=== PATIENT | male | born 1940 | race American Indian/Alaskan Native ===

== ENCOUNTER 2016-09-15 10:34 | Outpatient (CLI) | payer MEDICARE ==
[2016-09-15 13:48] LABS: Basophils % (Auto) 0.6 % (0.0-1.8); Hematocrit 37.2 % (35.5-45.6); Mean Corpuscular HGB Conc 32 % (32-34); Mean Corpuscular Hemoglobin 29 pg (28-32); Mean Corpuscular Volume 89 fl (84-94); Platelet Count 181 K/mm3 (140-440); Red Blood Count 4.16 M/mm3 (3.65-5.03); Red Cell Distribution Width 15.4 % (13.2-15.2); White Blood Count 4.8 K/mm3 (4.5-11.0)
[2016-09-15 14:01] LABS: BUN/Creatinine Ratio 17.2; Bilirubin,Total 0.4 mg/dL (0.1-1.2); Calcium 9.2 mg/dL (8.4-10.2); Chloride 104.6 mmol/L (98-107); Total Protein 7.9 g/dL (6.3-8.2); Uric Acid 5.5 mg/dL (3.5-7.6)
[2016-09-19 01:32] LABS: Vitamin D, 25-OH, Total 23 ng/mL (30-100)
== END 2016-09-15 10:35 | disposition home or self-care (01) ==
LOC: LABHHL 10:34
PROVIDERS: ATTEND Internal Medicine
DX: I10 Essential (primary) hypertension (principal); R60.9 Edema, unspecified; E78.2 Mixed hyperlipidemia; E66.9 Obesity, unspecified; N40.0 Benign prostatic hyperplasia without lower urinary tract symptoms; C61 Malignant neoplasm of prostate
CPT/HCPCS: 36415; 80053; 80061; 82306; 82607; 83036; 84443; 84550; 85025

== ENCOUNTER 2017-07-17 08:13 | Outpatient (CLI) | payer MEDICARE ==
--- NOTE | 2017-07-17 13:26 | Ultrasound Report ---
ULTRASOUND RENAL BILATERAL HISTORY: Chronic kidney disease, stage IV. TECHNIQUE: transabdominal ultrasound with color Doppler interrogation. FINDINGS: The right kidney measures 12.3 x 5.6 x 5.9cm. Right renal cortex: 1.2cm. The left kidney measures 12.2 x 3.7 x 3.9cm. Left renal cortex: 1.5cm. The kidneys are normal size, contour and position. There is increased cortical echotexture bilaterally consistent with nonspecific renal parenchymal disease. There are 3 cysts in the right kidney measuring 0.8 cm at the superior pole, 1.5 cm at the inferior pole, and 2.3 cm at the inferior pole. No left renal lesion. No mass, shadowing calculus or hydronephrosis. Images through the bladder demonstrate a 2.8 x 2.3 x 2.8 cm mass near the base of the bladder which presumably represents an enlarged prostate gland. IMPRESSION: Echogenic kidneys consistent with nonspecific renal parenchymal disease. Right renal cyst, simple. Prominent prostate gland versus bladder mass.
== END 2017-07-17 08:14 | disposition home or self-care (01) ==
LOC: US 08:13
PROVIDERS: ATTEND Internal Medicine
DX: N18.4 Chronic kidney disease, stage 4 (severe) (principal); N28.1 Cyst of kidney, acquired
CPT/HCPCS: 76770

== ENCOUNTER 2018-07-04 08:36 | Outpatient (CLI) | payer MEDICARE ==
[2018-07-04 10:13] LABS: Chol/HDL Ratio 3.06 %
[2018-07-09 12:47] LABS: Vitamin D, 25-OH, D2 12 ng/mL
== END 2018-07-04 08:37 | disposition home or self-care (01) ==
LOC: LAB 08:36
PROVIDERS: ATTEND Internal Medicine
DX: E78.2 Mixed hyperlipidemia (principal); E55.9 Vitamin D deficiency, unspecified; E66.9 Obesity, unspecified; I65.29 Occlusion and stenosis of unspecified carotid artery; R79.89 Other specified abnormal findings of blood chemistry
CPT/HCPCS: 36415; 80061; 82306; 83036

== ENCOUNTER 2018-08-14 10:01 | Outpatient (CLI) | payer MEDICARE ==
--- NOTE | 2018-08-15 05:35 | Vascular Lab Report ---
PROCEDURE: VL VENOUS DUPLEX LE BILAT TECHNIQUE: Routine Doppler compression imaging was obtained of the deep venous systems of both lower extremities. Augmentation maneuvers and waveforms were recorded. HISTORY: ACUTE EMBOLISM AND THROMBOSIS OF UNSPECIFIED DEEP VEINS COMPARISONS: None FINDINGS: All of the deep veins compress normally bilaterally. The waveforms appear normal. IMPRESSION: No evidence of deep venous thrombosis in either lower extremity.. This document is electronically signed by Jose Pimentel MD., August 15 2018 05:33:54 AM ET
== END 2018-08-14 10:02 | disposition home or self-care (01) ==
LOC: VAS 10:01
PROVIDERS: ATTEND Internal Medicine Nephrology
DX: I82.403 Acute embolism and thrombosis of unspecified deep veins of lower extremity, bilateral (principal); N18.4 Chronic kidney disease, stage 4 (severe)
CPT/HCPCS: 93970

== ENCOUNTER 2018-08-16 08:49 | Day surgery (SDC) | payer MEDICARE ==
[2018-08-16 09:52] LABS: Calcium 9.2 mg/dL (8.4-10.2)
[2018-08-16 10:00] LABS: INR 1.03 (0.87-1.13)
[2018-08-16] MEDS ORDERED: VERSED IV ONE (10:00)
[2018-08-16] MEDS ORDERED: SUBLIMAZE IV ONE (10:00)
[2018-08-16 10:01] LABS: Partial Thromboplastin Time 27.9 Sec. (24.2-36.6)
[2018-08-16 10:02] LABS: Basophils % (Auto) 0.8 % (0.0-1.8); Eosinophils # (Auto) 0.2 K/mm3 (0.0-0.4); Eosinophils % (Auto) 3.1 % (0.0-4.3); Hematocrit 34.7 % (35.5-45.6); Hemoglobin 11.7 gm/dl (11.8-15.2); Lymphocytes # (Auto) 1.7 K/mm3 (1.2-5.4); Lymphocytes % (Auto) 34.1 % (13.4-35.0); Mean Corpuscular HGB Conc 34 % (32-34); Mean Corpuscular Volume 89 fl (84-94); Monocytes # (Auto) 0.7 K/mm3 (0.0-0.8); Monocytes % (Auto) 14.3 % (0.0-7.3); Platelet Count 211 K/mm3 (140-440); Red Blood Count 3.89 M/mm3 (3.65-5.03)
--- NOTE | 2018-08-16 11:32 | Cat Scan Report ---
CT BIOPSY RENAL RIGHT HISTORY: Chronic kidney disease DESCRIPTION OF PROCEDURE: Informed consent was obtained. Sterile technique was utilized. 1% lidocaine for skin anesthesia. Moderate sedation was accomplished with Versed and fentanyl. The patient was sedated for 10 minutes. Independent cardiorespiratory monitoring by RN. Intraobserver time of [address] guidance, a 17-gauge introducer needle was advanced to the inferior pole of the right kidney. 2 separate 1.3 cm 18-gauge core biopsies were obtained for pathologic analysis. The patient tolerated the procedure without difficulty. Followup scan demonstrates trace perinephric hemorrhage at the biopsy site. IMPRESSION: Successful CT-guided biopsy of the inferior pole of the right kidney.
[2018-08-16 14:32] VITALS: BP 148/73
== END 2018-08-16 08:50 | disposition home or self-care (01) ==
LOC: CATHLABREC 08:49
PROVIDERS: ATTEND Internal Medicine Nephrology
DX: I12.9 Hypertensive chronic kidney disease with stage 1 through stage 4 chronic kidney disease, or unspecified chronic kidney disease (principal); N18.4 Chronic kidney disease, stage 4 (severe); I82.403 Acute embolism and thrombosis of unspecified deep veins of lower extremity, bilateral; Z88.0 Allergy status to penicillin; Z79.899 Other long term (current) drug therapy; Z98.890 Other specified postprocedural states
CPT/HCPCS: 36415; 50200; 77012; 80048; 85025; 85610; 85730; J2250; J3010

== ENCOUNTER 2018-11-19 08:57 | Outpatient (CLI) | payer MEDICARE ==
[2018-11-19 11:23] LABS: Albumin 3.9 g/dL (3.9-5); Calcium 9.5 mg/dL (8.4-10.2)
[2018-11-19 11:34] LABS: Chol/HDL Ratio 3.27 %
[2018-11-22 09:01] LABS: Vitamin D, 25-OH, D2 4 ng/mL
== END 2018-11-19 08:58 | disposition home or self-care (01) ==
LOC: LAB 08:57
PROVIDERS: ATTEND Internal Medicine
DX: E11.9 Type 2 diabetes mellitus without complications (principal); E55.9 Vitamin D deficiency, unspecified; E87.5 Hyperkalemia; E78.2 Mixed hyperlipidemia
CPT/HCPCS: 36415; 80053; 80061; 82306; 83036

== ENCOUNTER 2021-08-17 08:08 | Day surgery (SDC) | payer MEDICARE ==
[2021-08-17] MEDS ORDERED: SODIUM CHLORIDE 0.9% 1000 ML 1,000 ML IV SCH (09:00)
[2021-08-17 09:58] LABS: Hematocrit 30.1 % (35.5-45.6); Hemoglobin 9.9 gm/dl (11.8-15.2); Mean Corpuscular HGB Conc 33 % (32-34); Mean Corpuscular Volume 90 fl (84-94); Platelet Count 176 K/mm3 (140-440); Red Blood Count 3.34 M/mm3 (3.65-5.03); Red Cell Distribution Width 14.7 % (13.2-15.2)
[2021-08-17] MEDS ORDERED: HYDROmorphone 0.5 MG/0.5 ML INJ IV PRN ×2 (10:09→10:30)
[2021-08-17] MEDS ORDERED: ONDANSETRON 4 MG/2 ML INJ IV PRN (10:09)
--- NOTE | 2021-08-17 10:10 | Anesthesia Day of Surgery ---
Anesthesia Day of Surgery - Day of Surgery Patient Examined: Yes Patient H&P Reviewed: Yes Patient is NPO: Yes
--- NOTE | 2021-08-17 10:12 | Anesthesia Consultation ---
Anesthesia Consult and Med Hx Date of service: 08/17/21 - Airway Anesthetic Teeth Evaluation: Good (Missing) ROM Head & Neck: Adequate Mental/Hyoid Distance: Adequate Mallampati Class: Class III Intubation Access Assessment: Probably Good - Pre-Operative Health Status ASA Pre-Surgery Classification: ASA3 Proposed Anesthetic Plan: General - Pulmonary Hx Smoking: No Hx Sleep Apnea: No - Cardiovascular System Hx Hypertension: Yes - Central Nervous System Hx Psychiatric Problems: No - Endocrine Hx Renal Disease: Yes Hx End Stage Renal Disease: Yes (Not on HD yet) Hx Non-Insulin Dependent Diabetes: No - Hematic Hx Anemia: Yes (9.930.1) Hx Sickle Cell Disease: No - Other Systems Hx Alcohol Use: No Hx Substance Use: No Hx Cancer: Yes (Prostate) Hx Obesity: Yes
--- NOTE | 2021-08-17 10:42 | Short Stay Summary ---
Short Stay Documentation Date of service: 08/17/21 Narrative H&P: The patient is an 81-year-old male with a history of chronic renal insufficiency who has not yet been started on hemodialysis however it is anticipated that he would likely require hemodialysis in the near future. He is right-hand dominant and was referred by his director sports Dr. Garcia in the hopes of having long-term dialysis access placed to avoid the placement of a permacath in the future. He had a bedside ultrasound performed that demonstrated he is an adequate candidate for creation of a left arm arteriovenous fistula. He was given the risk, benefits, and alternative procedures and expressed understanding and agrees to proceed. - History Past Medical History: heart failure, hypertension, renal failure, other (BPH) Past Surgical History: TURP Social history: no significant social history - Allergies and Medications Current Medications: Allergies Penicillins Adverse Reaction (Verified 08/12/21 16:56) Hives Home Medications Medication Instructions Recorded Confirmed Last Taken Type Nebivolol HCl [Bystolic] 5 tab PO DAILY 08/16/18 08/12/21 08/16/21 09:00 History Rosuvastatin (Nf) [Crestor] 20 mg PO DAILY 08/16/18 08/12/21 08/16/21 History Tamsulosin [Flomax] 0.4 mg PO QDAY 08/16/18 08/12/21 08/16/21 History amLODIPine 10 mg PO DAILY 08/16/18 08/17/21 08/17/21 06:45 History Aspirin [[place] Aspirin EC] 81 mg PO DAILY 08/12/21 08/17/21 08/15/21 History Furosemide [Lasix TAB] 80 mg PO DAILY 08/12/21 08/12/21 08/16/21 History calcitrioL [Rocaltrol] 0.5 mcg PO QDAY 08/12/21 08/12/21 08/16/21 History Active Medications Hydromorphone HCl (Hydromorphone 0.5 Mg/0.5 Ml Inj) 0.25 mg IV Q10MIN PRN PRN Reason: Pain, Moderate (4-6) Stop: 08/17/21 20:00 Hydromorphone HCl (Hydromorphone 0.5 Mg/0.5 Ml Inj) 0.5 mg IV Q10MIN PRN PRN Reason: Pain , Severe (7-10) Stop: 08/17/21 20:00 Clindamycin HCl (Cleocin 900 Mg/50 Ml) 900 mg in 50 mls @ 100 mls/hr IV PREOP HENRIQUE; Protocol Sodium Chloride (Nacl 0.9% 1000 Ml) 1,000 mls @ 42 mls/hr IV DIRECT HENRIQUE Last Admin: 08/17/21 09:16 Dose: 42 mls/hr Ondansetron HCl (Ondansetron 4 Mg/2 Ml Inj) 4 mg IV ONCE PRN PRN Reason: Nausea And Vomiting Stop: 08/17/21 12:00 - Physical exam General appearance: no acute distress Lungs: Normal air movement Breasts: deferred Heart: Regular rate Gastrointestinal: normal Male Genitourinary: deferred Female Genitourinary: deferred Rectal Exam: deferred Extremities: pulses intact (Palpable radial pulses bilaterally) - Brief post op/procedure progress note Date of procedure: 08/17/21 Pre-op diagnosis: Stage V Chronic Renal Insufficiency Post-op diagnosis: same Procedure: Creation of Left Brachiocephalic Arteriovenous Fistula Anesthesia: GETA Surgeon: JERILYN HOANG Estimated blood loss: minimal Pathology: none Condition: stable - Disposition Condition at discharge: Good Disposition: 01 HOME / SELF CARE / HOMELESS Short Stay Discharge Plan Activity: other (No heavy lifting with left arm for 2 weeks. Use stress ball with left hand as often as possible.) Wound: open to air, keep clean and dry, other (Okay to shower and wash the left arm incision with soap and water but do not soak in water for 2 weeks.) Follow up with: LINDA MORAN MD [Primary Care Provider] - 7 Days JERILYN HOANG MD [Staff Physician] - 14 Days Forms: Outpatient Surgery DC Inst. Prescriptions: HYDROcodone/APAP 7.5-325 [[place] 7.5/325] 1 each PO Q6HR PRN #30 tablet PRN Reason: Pain
[2021-08-17] MEDS ORDERED: fentaNYL 100 MCG/2 ML INJ ONE (10:51)
[2021-08-17] MEDS ORDERED: LIDOCAINE PF 100 MG/5 ML (CARDIAC SYRINGE) IV ONE (10:51)
[2021-08-17] MEDS ORDERED: propofoL 200 MG/20 ML VIAL IV ONE (10:51)
[2021-08-17] MEDS ORDERED: HEPARIN 10,000 UNITS/10 ML VIAL ONE (10:56)
[2021-08-17] MEDS ORDERED: BUPIVACAINE/PF (0.5%) 5 MG/1 ML 30 ML VIAL INFILTRATI ONE ×2 (10:57→12:29)
[2021-08-17] MEDS ORDERED: SODIUM CHLORIDE 0.9% 500 ML 500 ML ONE (10:57)
[2021-08-17] MEDS ORDERED: GLYCOPYRROLATE 0.4 MG/2 ML INJ ONE (11:43)
[2021-08-17] MEDS ORDERED: SODIUM CHLORIDE 0.9% IRR 1,500 ML BOTTLE IR ONE (12:02)
[2021-08-17] MEDS ORDERED: LIDOCAINE (1%) 10 MG/1 ML VIAL 20 ML MDV INFILTRATI ONE (12:02)
[2021-08-17] MEDS ORDERED: SODIUM CHLORIDE 0.9% P/F 10 ML VIAL IV ONE (12:02)
[2021-08-17] MEDS ORDERED: BUPIVACAINE/PF (0.5%) 5 MG/1 ML 10 ML VIAL INFILTRATI ONE (12:02)
[2021-08-17] MEDS ORDERED: SODIUM CHLORIDE 0.9% 500 ML IVPB IRRIGATION ONE (12:02)
[2021-08-17] MEDS ORDERED: SODIUM CHLORIDE 0.9% 250 ML IVPB IV ONE (12:02)
[2021-08-17] MEDS ORDERED: SODIUM CHLORIDE 0.9% 500 ML IVPB IV ONE (12:02)
[2021-08-17] MEDS ORDERED: HEPARIN 10,000 UNITS/10 ML VIAL IV ONE (12:05)
[2021-08-17] MEDS ORDERED: ONDANSETRON 4 MG/2 ML INJ ONE (12:44)
--- NOTE | 2021-08-17 13:09 | Operative Report ---
Operative Report Operative Report: Date of procedure: 08/17/2021 Pre-operative diagnosis: Chronic Renal Insufficiency Post-operative diagnosis: Same Procedure(s): Creation of Left brachial Artery to Cephalic Vein Arteriovenous Fistula Surgeon: Denzel Jacob MD X Ray Physician: None Anesthesia: LMA EBL: Minimal Counts: Correct Complications: None Condition: Stable Findings: Successful creation of left brachiocephalic arteriovenous fistula with palpable thrill and palpable radial pulse at the completion of the case. Specimen: None Indications: The patient is an 81-year-old male with a history of stage V chronic renal insufficiency who is in need of long-term dialysis access to avoid placement of a permacath if he progresses to requiring hemodialysis in the future. He is right-hand dominant and a bedside ultrasound demonstrated he has an adequate vein for creation of an arteriovenous fistula. He was given the risk, benefits, and alternative procedures and consented to the procedure. Description of Procedure: The patient was brought to the operating room and laid in supine position. A timeout was performed and then the patient was adequately sedated and LMA was placed. His left arm was then prepped and draped in normal sterile fashion. A transverse incision was then made and carried down to the cephalic vein using sharp dissection. The vein was dissected out both proximally and distally and suture ligated and divided distally. I flushed the vein with heparinized saline and flow was controlled with a bulldog clamp. I then dissected out the brachial artery through this incision circumferentially both proximal and distal and controlled the artery with vessel loops. I systemically heparinized the patient with 3000 units of heparin IV and used angled DeBakey clamps to control flow through the artery. I created an arteriotomy using an 11 blade and Baig scissors. I created an end to side anastomosis between the cephalic vein and brachial artery using a 6-0 Prolene in running fashion. Prior to completing the anastomosis I flashed the artery both proximally and distally and then flushed the anastomosis with heparinized saline to remove any debris. I then completed the anastomosis and removed all clamps allowing flow into the fistula which had an adequate thrill. I achieved hemostasis with a combination of Quick Clot and electrocautery. Once hemostasis had been achieved I closed the wound in 2 layers using a 3-0 Vicryl in a running fashion in the deep dermal layer and a 4- 0 Monocryl in running fashion in the subcuticular layer. I then dressed the wound with Dermabond. The patient tolerated the procedure well. All sponge, needle, and instrument counts were correct. The patient was taken to the recovery area in stable condition.
[2021-08-17 14:20] VITALS: BP 139/68
--- NOTE | 2021-08-17 15:38 | Post Anesthesia Evaluation ---
- Post Anesthesia Evaluation Patient Participated: Yes Airway Patent: Yes Stable Respiratory Function: Yes Nausea/Vomiting: No Temp > 96.8F: Yes Pain Manageable: Yes Adequeate Hydration: Yes Anesthesia Complications: No Block Receding Appropriately: Not Applicable Patient on Ventilator: No
== END 2021-08-17 14:10 | disposition home or self-care (01) ==
LOC: OR 08:08
PROVIDERS: ATTEND Surgery Vascular Surgery
DX: I12.0 Hypertensive chronic kidney disease with stage 5 chronic kidney disease or end stage renal disease (principal); N18.6 End stage renal disease; E66.9 Obesity, unspecified; D64.9 Anemia, unspecified; Z88.0 Allergy status to penicillin; Z79.82 Long term (current) use of aspirin; Z79.899 Other long term (current) drug therapy; E78.00 Pure hypercholesterolemia, unspecified; Z85.46 Personal history of malignant neoplasm of prostate; Z98.890 Other specified postprocedural states; Z68.32 Body mass index [BMI] 32.0-32.9, adult
CPT/HCPCS: 36415; 36821; 80048; 85027; J1644; J1815; J2001; J2405; J2704; J3010; J3490; J7030; J7040; J7502; J7050

== ENCOUNTER 2021-10-11 14:15 | Inpatient (IN) | payer MEDICARE ==
[2021-10-11] MEDS ORDERED: MORPHINE 2 MG/1 ML INJ IV PRN (14:41)
[2021-10-11] MEDS ORDERED: ACETAMINOPHEN 325 MG TAB PO PRN ×2 (14:41→19:00)
--- NOTE | 2021-10-11 17:11 | Vascular Lab Report ---
Left upper extremity AV fistula vascular ultrasound HISTORY: evaluate fistula functioning. TECHNIQUE: Grayscale and Doppler imaging performed. COMPARISON: None FINDINGS: There is a left upper extremity AV fistula. Proximal to the anastomosis, peak systolic [place] in the brachial artery is 217 cm/s. The anastomosis is widely patent. Within the fistula, peak s ystolic velocity is 372 cm/s. At the inflow side, peak systolic velocity is 460 cm/s. At the level of the biceps distally peak systolic velocity is 211 cm/s, 264 cm/s at the mid biceps, and 307 cm/s at the proximal biceps level. At the level of the axilla, peak systolic velocity is 268 cm/s. The outflo w tract to systolic velocity is 324 cm/s. Peak systolic velocity in the subclavian vein is 83 cm/s. V olume flow rate is between 517 and 587 mL/m. IMPRESSION: Patent left upper extremity AV fistula with peak systolic velocities as above. Signer Name: López Schultz MD Signed: 10/11/2021 5:06 PM Workstation Name: [facility]
[2021-10-11] MEDS ORDERED: ONDANSETRON 4 MG/2 ML INJ IV PRN (19:00)
[2021-10-11 21:22] LABS: Basophils # (Auto) 0.1 K/mm3 (0.0-0.1); Eosinophils # (Auto) 0.1 K/mm3 (0.0-0.4); Eosinophils % (Auto) 1.8 % (0.0-4.3); Hematocrit 25.7 % (35.5-45.6); Hemoglobin 8.6 gm/dl (11.8-15.2); Lymphocytes # (Auto) 1.2 K/mm3 (1.2-5.4); Lymphocytes % (Auto) 22.1 % (13.4-35.0); Mean Corpuscular HGB Conc 33 % (32-34); Mean Corpuscular Volume 90 fl (84-94); Monocytes # (Auto) 0.8 K/mm3 (0.0-0.8); Platelet Count 157 K/mm3 (140-440); Red Blood Count 2.87 M/mm3 (3.65-5.03); Red Cell Distribution Width 15.3 % (13.2-15.2)
[2021-10-11 21:36] LABS: Albumin 3.5 g/dL (3.9-5); Calcium 8.6 mg/dL (8.4-10.2)
[2021-10-12] MEDS: FAMOTIDINE 10 MG TAB PO SCH ×3 (00:01→21:56)
[2021-10-12 05:03] LABS: Hematocrit 24.7 % (35.5-45.6); Hemoglobin 8.3 gm/dl (11.8-15.2); Mean Corpuscular HGB Conc 34 % (32-34); Mean Corpuscular Volume 89 fl (84-94); Platelet Count 152 K/mm3 (140-440); Red Blood Count 2.77 M/mm3 (3.65-5.03); Red Cell Distribution Width 14.9 % (13.2-15.2)
[2021-10-12 05:24] LABS: Calcium 8.5 mg/dL (8.4-10.2)
[2021-10-12 06:37] LABS: Total Cells Counted 100
[2021-10-12 06:38] LABS: Anisocytosis Few; Band Neutrophils # (Manual) 0.1 K/mm3; Basophils % (Manual) 0 % (0.0-1.8); Eosinophils % (Manual) 0 % (0.0-4.3); Ovalocytes Few; Platelet Estimate Consistent w Auto
--- NOTE | 2021-10-12 08:24 | History and Physical Report ---
History of Present Illness Date of examination: 10/11/21 Date of admission: 10/11/21 15:39 Chief complaint: Direct admission for hemodialysis History of present illness: 81-year-old -[place] male history of chronic chronic kidney disease which has been progressing over the last 5 years--was sent by his energy manager Dr. Garcia for first-time dialysis. Creatinine is about 6 hyperkalemia. Patient is getting increasingly fatigued. Patient has a AV fistula in the left upper extremity about mid August. Vascular surgery to decide whether the AV fistula can be used or new Vas-Cath to be placed. Slight shortness of breath present. Generalized weakness present. No nausea or vomiting. No altered sensorium. No fever or chills. Past History Past Medical History: ESRD, hypertension, hyperlipidemia, other (bph, prostate cancer) Past Surgical History: Other (AV fistula, prostate radioactive seeding in 2013) Medications and Allergies Allergies Allergy/AdvReac Type Severity Reaction Status Date / Time Penicillins Allergy Hives Verified 10/11/21 15:30 Home Medications Medication Instructions Recorded Confirmed Last Taken Type Nebivolol HCl [Bystolic] 5 tab PO DAILY 08/16/18 10/11/21 10/11/21 History Rosuvastatin (Nf) [Crestor] 20 mg PO DAILY 08/16/18 10/11/21 10/11/21 History Tamsulosin [Flomax] 0.4 mg PO QDAY 08/16/18 10/11/21 10/11/21 History amLODIPine 10 mg PO DAILY 08/16/18 10/11/21 10/11/21 History Aspirin [[place] Aspirin EC] 81 mg PO DAILY 08/12/21 10/11/21 10/11/21 History Furosemide [Lasix TAB] 80 mg PO DAILY 08/12/21 10/11/21 10/11/21 History calcitrioL [Rocaltrol] 0.5 mcg PO QDAY 08/12/21 10/11/21 10/11/21 History Vitamin D3 5,000 UNIT 5,000 units PO DAILY 10/11/21 10/11/21 10/11/21 History Active Meds: Active Medications Acetaminophen (Acetaminophen 325 Mg Tab) 650 mg PO Q4H PRN PRN Reason: Pain MILD(1-3)/Fever >100.5/GODOY Famotidine (Famotidine 10 Mg Tab) 10 mg PO BID [facility] Last Admin: 10/12/21 00:01 Dose: 10 mg Morphine Sulfate (Morphine 2 Mg/1 Ml Inj) 2 mg IV Q4H PRN PRN Reason: Pain, Moderate (4-6) Ondansetron HCl (Ondansetron 4 Mg/2 Ml Inj) 4 mg IV Q8H PRN PRN Reason: Nausea And Vomiting Sodium Chloride (Sodium Chloride 0.9% 10 Ml Flush Syringe) 10 ml IV BID [facility] Sodium Chloride (Sodium Chloride 0.9% 10 Ml Flush Syringe) 10 ml IV PRN PRN PRN Reason: LINE FLUSH Review of Systems All systems: negative Constitutional: anorexia, fatigue, weakness, malaise, no weight loss, no weight gain, no fever, no chills, no sweats, no night sweats, no lethargy, no chronic headaches, no poor appetite, no daytime sleepiness, no chronic pain, no other Ears, nose, mouth and throat: no ear pain, no ear discharge, no tinnitis, no decreased hearing, no nose pain Cardiovascular: no chest pain, no orthopnea, no palpitations, no rapid/irregular heart beat Respiratory: no dyspnea on exertion Gastrointestinal: no abdominal pain, no nausea, no vomiting, no diarrhea Genitourinary Male: urinary hesitancy, no dysuria, no hematuria, no flank pain, no discharge, no urinary frequency Rectal: no pain Musculoskeletal: no neck stiffness, no neck pain, no shooting arm pain, no arm numbness/tingling, no low back pain Integumentary: deferred Neurological: no head injury, no transient paralysis, no paralysis, no weakness, no parathesias, no numbness, no tingling Psychiatric: change in appetite, no anxiety, no memory loss, no change in sleep habits, no sleep disturbances, no insomnia, no hypersomnia, no change in libido, no suicidal ideation, no disorientation, no hallucinations Endocrine: no cold intolerance, no heat intolerance, no polyphagia, no excessive thirst, no polydipsia, no polyuria, no nocturia, no excessive sweating Hematologic/Lymphatic: no easy bruising, no easy bleeding Allergic/Immunologic: no urticaria, no allergic rhinitis, no wheezing Exam - Constitutional Vitals: Temp Pulse Resp BP Pulse Ox 98.0 F 50 L 17 160/68 98 10/12/21 02:28 10/12/21 02:28 10/12/21 02:28 10/12/21 02:28 10/12/21 02:28 General appearance: Present: no acute distress, well-nourished - EENT Eyes: Present: PERRL ENT: hearing intact, clear oral mucosa - Neck Neck: Present: supple, normal ROM - Respiratory Respiratory effort: normal Respiratory: bilateral: CTA - Cardiovascular Heart rate: 78 Rhythm: regular Heart Sounds: Present: S1 & S2. Absent: rub, click - Extremities Extremities: no ischemia, pulses intact, pulses symmetrical, No edema Peripheral Pulses: within normal limits - Abdominal General gastrointestinal: Present: soft, non-tender, non-distended, normal bowel sounds Male genitourinary: Present: normal - Rectal Rectal Exam: deferred - Integumentary Integumentary: Present: clear, warm, dry - Musculoskeletal Musculoskeletal: gait normal, strength equal bilaterally - Psychiatric Psychiatric: appropriate mood/affect, intact judgment & insight - Neurologic Neurologic: CNII-XII intact, moves all extremities - Allied Health Allied health notes reviewed: nursing, case management Results - Labs CBC & Chem 7: 10/12/21 04:33 10/12/21 04:33 Labs: Laboratory Last Values WBC 5.2 K/mm3 (4.5-11.0) 10/12/21 04:33 RBC 2.77 M/mm3 (3.65-5.03) L 10/12/21 04:33 Hgb 8.3 gm/dl (11.8-15.2) L 10/12/21 04:33 Hct 24.7 % (35.5-45.6) L 10/12/21 04:33 MCV 89 fl (84-94) 10/12/21 04:33 MCH 30 pg (28-32) 10/12/21 04:33 MCHC 34 % (32-34) 10/12/21 04:33 RDW 14.9 % (13.2-15.2) 10/12/21 04:33 Plt Count 152 K/mm3 (140-440) 10/12/21 04:33 Lymph % (Auto) 22.1 % (13.4-35.0) 10/11/21 21:08 [place] % (Auto) [employer] 10/12/21 04:33 Eos % (Auto) 1.8 % (0.0-4.3) 10/11/21 21:08 Baso % (Auto) 1.0 % (0.0-1.8) 10/11/21 21:08 Lymph # (Auto) 1.2 K/mm3 (1.2-5.4) 10/11/21 21:08 [place] # (Auto) 0.8 K/mm3 (0.0-0.8) 10/11/21 21:08 Eos # (Auto) 0.1 K/mm3 (0.0-0.4) 10/11/21 21:08 Baso # (Auto) 0.1 K/mm3 (0.0-0.1) 10/11/21 21:08 Add Manual Diff Complete 10/12/21 04:33 Total Counted 100 10/12/21 04:33 Seg Neutrophils % 61.1 % (40.0-70.0) 10/11/21 21:08 Seg Neuts % (Manual) 71.0 % (40.0-70.0) H 10/12/21 04:33 Band Neutrophils % 2.0 % 10/12/21 04:33 Lymphocytes % (Manual) 24.0 % (13.4-35.0) 10/12/21 04:33 Reactive Lymphs % (Man) 0 % 10/12/21 04:33 Monocytes % (Manual) 3.0 % (0.0-7.3) 10/12/21 04:33 Eosinophils % (Manual) 0 % (0.0-4.3) 10/12/21 04:33 Basophils % (Manual) 0 % (0.0-1.8) 10/12/21 04:33 Metamyelocytes % 0 % 10/12/21 04:33 Myelocytes % 0 % 10/12/21 04:33 Promyelocytes % 0 % 10/12/21 04:33 Blast Cells % 0 % 10/12/21 04:33 Nucleated RBC % Not Reportable 10/12/21 04:33 Seg Neutrophils # 3.4 K/mm3 (1.8-7.7) 10/11/21 21:08 Seg Neutrophils # Man 3.7 K/mm3 (1.8-7.7) 10/12/21 04:33 Band Neutrophils # 0.1 K/mm3 10/12/21 04:33 Lymphocytes # (Manual) 1.2 K/mm3 (1.2-5.4) 10/12/21 04:33 Abs React Lymphs (Man) 0.0 K/mm3 10/12/21 04:33 Monocytes # (Manual) 0.2 K/mm3 (0.0-0.8) 10/12/21 04:33 Eosinophils # (Manual) 0.0 K/mm3 (0.0-0.4) 10/12/21 04:33 Basophils # (Manual) 0.0 K/mm3 (0.0-0.1) 10/12/21 04:33 Metamyelocytes # 0.0 K/mm3 10/12/21 04:33 Myelocytes # 0.0 K/mm3 10/12/21 04:33 Promyelocytes # 0.0 K/mm3 10/12/21 04:33 Blast Cells # 0.0 K/mm3 10/12/21 04:33 WBC Morphology Not Reportable 10/12/21 04:33 Hypersegmented Neuts Not Reportable 10/12/21 04:33 Hyposegmented Neuts Not Reportable 10/12/21 04:33 Hypogranular Neuts Not Reportable 10/12/21 04:33 Smudge Cells Not Reportable 10/12/21 04:33 Toxic Granulation Not Reportable 10/12/21 04:33 Toxic Vacuolation Not Reportable 10/12/21 04:33 Dohle Bodies Not Reportable 10/12/21 04:33 Pelger-Huet Anomaly Not Reportable 10/12/21 04:33 Ivy Rods Not Reportable 10/12/21 04:33 Platelet Estimate Consistent w auto 10/12/21 04:33 Clumped Platelets Not Reportable 10/12/21 04:33 Plt Clumps, EDTA Not Reportable 10/12/21 04:33 Large Platelets Not Reportable 10/12/21 04:33 Giant Platelets Not Reportable 10/12/21 04:33 Platelet Satelliting Not Reportable 10/12/21 04:33 Plt Morphology Comment Not Reportable 10/12/21 04:33 RBC Morphology Not Reportable 10/12/21 04:33 Dimorphic RBCs Not Reportable 10/12/21 04:33 Polychromasia Not Reportable 10/12/21 04:33 Hypochromasia Not Reportable 10/12/21 04:33 Poikilocytosis Not Reportable 10/12/21 04:33 Anisocytosis Few 10/12/21 04:33 Microcytosis Not Reportable 10/12/21 04:33 Macrocytosis Not Reportable 10/12/21 04:33 Spherocytes Not Reportable 10/12/21 04:33 Pappenheimer Bodies Not Reportable 10/12/21 04:33 Sickle Cells Not Reportable 10/12/21 04:33 Target Cells Not Reportable 10/12/21 04:33 Tear Drop Cells Not Reportable 10/12/21 04:33 Ovalocytes Few 10/12/21 04:33 Helmet Cells Not Reportable 10/12/21 04:33 [place] Bodies Not Reportable 10/12/21 04:33 Strawn Rings Not Reportable 10/12/21 04:33 [place] Cells Not Reportable 10/12/21 04:33 Bite Cells Not Reportable 10/12/21 04:33 Crenated Cell Not Reportable 10/12/21 04:33 Elliptocytes Not Reportable 10/12/21 04:33 Acanthocytes (Spur) Not Reportable 10/12/21 04:33 Rouleaux Not Reportable 10/12/21 04:33 Hemoglobin C Crystals Not Reportable 10/12/21 04:33 Schistocytes Not Reportable 10/12/21 04:33 Malaria parasites Not Reportable 10/12/21 04:33 Bertram Bodies Not Reportable 10/12/21 04:33 Hem Pathologist Commnt No 10/12/21 04:33 Sodium 141 mmol/L (137-145) 10/12/21 04:33 Potassium 5.0 mmol/L (3.6-5.0) 10/12/21 04:33 Chloride 112.2 mmol/L (98-107) H 10/12/21 04:33 Carbon Dioxide 17 mmol/L (22-30) L 10/12/21 04:33 Anion Gap 17 mmol/L 10/12/21 04:33 BUN 84 mg/dL (9-20) H 10/12/21 04:33 Creatinine 5.7 mg/dL (0.8-1.3) H 10/12/21 04:33 Estimated GFR 12 ml/min 10/12/21 04:33 BUN/Creatinine Ratio 15 % 10/12/21 04:33 Glucose 84 mg/dL (75-100) 10/12/21 04:33 Calcium 8.5 mg/dL (8.4-10.2) 10/12/21 04:33 Total Bilirubin 0.20 mg/dL (0.1-1.2) 10/11/21 21:08 AST 17 units/L (5-40) 10/11/21 21:08 ALT 11 units/L (7-56) 10/11/21 21:08 Alkaline Phosphatase 69 units/L (35-129) 10/11/21 21:08 Total Protein 5.7 g/dL (6.3-8.2) L 10/11/21 21:08 Albumin 3.5 g/dL (3.9-5) L 10/11/21 21:08 Albumin/Globulin Ratio 1.6 % 10/11/21 21:08 Short CBC 10/11/21 10/12/21 Range/Units 21:08 04:33 WBC 5.6 5.2 (4.5-11.0) K/mm3 Hgb 8.6 L 8.3 L (11.8-15.2) gm/dl Hct 25.7 L 24.7 L (35.5-45.6) % Plt Count 157 152 (140-440) K/mm3 BMP 10/11/21 10/12/21 21:08 04:33 Sodium 141 141 Potassium 4.7 5.0 Chloride 110.0 H 112.2 H Carbon Dioxide 17 L 17 L BUN 84 H 84 H Creatinine 5.9 H 5.7 H Glucose 132 H 84 Calcium 8.6 8.5 Liver Function 10/11/21 Range/Units 21:08 Total Bilirubin 0.20 (0.1-1.2) mg/dL AST 17 (5-40) units/L ALT 11 (7-56) units/L Alkaline Phosphatase 69 (35-129) units/L Albumin 3.5 L (3.9-5) g/dL [place]/IV: Voiding Method Toilet Assessment and Plan Advance Directives: Yes (Full code) VTE prophylaxis?: Chemical Plan of care discussed with patient/family: Yes - Patient Problems (1) ESRD needing dialysis Current Visit: Yes Status: Acute Plan to address problem: Patient has reached a threshold level where he needs hemodialysis Patient had AV fistula in [place] Vascular surgery to decide about the maturity of AV fistula for hemodialysis. If AV fistula cannot be used then he needs a new Vas-Cath (2) Hypertension Current Visit: Yes Status: Chronic Qualifiers: Hypertension type: primary hypertension Qualified Code(s): I10 - Essential (primary) hypertension Plan to address problem: Continue antihypertensives and adjust medications as necessary (3) HLD (hyperlipidemia) Current Visit: Yes Status: Chronic Qualifiers: Hyperlipidemia type: mixed hyperlipidemia Qualified Code(s): E78.2 - Mixed hyperlipidemia Plan to address problem: Continue statins (4) BPH (benign prostatic hyperplasia) Current Visit: Yes Status: Chronic Qualifiers: Lower urinary tract symptom presence: symptoms present Lower urinary tract symptom detail: unspecified Qualified Code(s): N40.1 - Benign prostatic hyperp lasia with lower urinary tract symptoms Plan to address problem: Continue tamsulosin (5) Vitamin D deficiency Current Visit: Yes Status: Chronic Plan to address problem: Continue vitamin D at 5000 units (6) Anemia Current Visit: Yes Status: Chronic Qualifiers: Anemia type: due to chronic kidney disease Plan to address problem: Will defer to nephrology regarding Epogen (7) DVT prophylaxis Current Visit: Yes Status: Acute Plan to address problem: Patient on heparin and GI prophylaxis (8) Advance care planning Current Visit: Yes Status: Acute Plan to address problem: This is education collected, care plan discussed, diagnosis discussed, and prognosis discussed. Patient acknowledged understanding with care plan +30 minutes.
[2021-10-12] MEDS ORDERED: NON-FORMULARY EACH (Rosuvastatin (Nf) 5 MG Tablet) PO SCH (10:00)
[2021-10-12] MEDS ORDERED: NEBIVOLOL HCL PO SCH (10:00)
[2021-10-12] MEDS ORDERED: METOPROLOL SUCCINATE XL 50 MG TAB PO SCH (10:00)
[2021-10-12] MEDS ORDERED: VITAMIN D3 5000 UNIT PO SCH (10:00)
[2021-10-12] MEDS ORDERED: NON-FORMULARY EACH (Furosemide [Lasix Tab] 80 MG Tablet) PO SCH (10:00)
[2021-10-12] MEDS ORDERED: FUROSEMIDE 40 MG TAB PO SCH (10:00)
[2021-10-12] MEDS: ASPIRIN EC 81 MG TAB PO SCH (10:19)
[2021-10-12] MEDS: CHOLECALCIFEROL (VIT D3) 5,000 UNIT TAB PO SCH (10:20)
[2021-10-12] MEDS: TAMSULOSIN 0.4 MG CAP PO SCH (10:20)
[2021-10-12] MEDS: amLODIPine 10 MG TAB PO SCH (10:20)
[2021-10-12] MEDS ORDERED: HEPARIN 10,000 UNITS/10 ML VIAL ONE (11:53)
[2021-10-12] MEDS ORDERED: HEPARIN/NS 5000 UNIT/500ML 1,000 ML IR ONE (11:53)
[2021-10-12] MEDS: LIDOCAINE (2%) 20 MG/1 ML VIAL 50 ML MDV INFILTRATI ONE ×2 (11:58→13:01)
[2021-10-12] MEDS: CLINDAMYCIN 600 MG/50 mL 600 MG/50 ML BAG IV NR ×2 (11:59→12:58)
[2021-10-12] MEDS ORDERED: SODIUM CHLORIDE 0.9% 500 ML 500 ML ONE (12:36)
[2021-10-12] MEDS: fentaNYL 100 MCG/2 ML INJ ONE ×3 (12:49→13:05)
[2021-10-12] MEDS: MIDAZOLAM 2 MG/2 ML INJ ONE ×3 (12:49→13:05)
--- NOTE | 2021-10-12 13:51 | Consultation ---
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 [employer] is Dr. Garcia Past History Past Medical History: ESRD, hypertension, hyperlipidemia, other (bph, prostate cancer) Past Surgical History: Other (AV fistula, prostate radioactive seeding in 2013) Medications and Allergies Allergies Allergy/AdvReac Type Severity Reaction Status Date / Time Penicillins Allergy Hives Verified 10/11/21 15:30 Home Medications Medication Instructions Recorded Confirmed Last Taken Type Nebivolol HCl [Bystolic] 5 tab PO DAILY 08/16/18 10/11/21 10/11/21 History Rosuvastatin (Nf) [Crestor] 20 mg PO DAILY 08/16/18 10/11/21 10/11/21 History Tamsulosin [Flomax] 0.4 mg PO QDAY 08/16/18 10/11/21 10/11/21 History amLODIPine 10 mg PO DAILY 08/16/18 10/11/21 10/11/21 History Aspirin [[place] Aspirin EC] 81 mg PO DAILY 08/12/21 10/11/21 10/11/21 History Furosemide [Lasix TAB] 80 mg PO DAILY 08/12/21 10/11/21 10/11/21 History calcitrioL [Rocaltrol] 0.5 mcg PO QDAY 08/12/21 10/11/21 10/11/21 History Vitamin D3 5,000 UNIT 5,000 units PO DAILY 10/11/21 10/11/21 10/11/21 History Active Meds: Active Medications Acetaminophen (Acetaminophen 325 Mg Tab) 650 mg PO Q4H PRN PRN Reason: Pain MILD(1-3)/Fever >100.5/GODOY Amlodipine Besylate (Amlodipine 10 Mg Tab) 10 mg PO DAILY [facility] Aspirin (Aspirin Ec 81 Mg Tab) 81 mg PO DAILY [facility] Last Admin: 10/12/21 10:19 Dose: 81 mg Atorvastatin Calcium (Atorvastatin 40 Mg Tab) 40 mg PO QHS [facility] Calcitriol (Calcitriol 0.5 Mcg Cap) 0.5 mcg PO QDAY [facility] Cholecalciferol (Cholecalciferol (Vit D3) 5,000 Unit Tab) 5,000 unit PO QDAY [facility] Last Admin: 10/12/21 10:20 Dose: 5,000 unit Famotidine (Famotidine 10 Mg Tab) 10 mg PO BID [facility] Last Admin: 10/12/21 10:19 Dose: 10 mg Furosemide (Furosemide 40 Mg Tab) 80 mg PO DAILY [facility] Clindamycin HCl (Cleocin 600 Mg/50 Ml) 600 mg in 50 mls @ 100 mls/hr IV PREOP NR; Protocol Stop: 10/12/21 20:00 Last Admin: 10/12/21 12:58 Dose: 50 mls Metoprolol Succinate (Metoprolol Succinate Xl 50 Mg Tab) 50 mg PO QDAY [facility] Morphine Sulfate (Morphine 2 Mg/1 Ml Inj) 2 mg IV Q4H PRN PRN Reason: Pain, Moderate (4-6) Ondansetron HCl (Ondansetron 4 Mg/2 Ml Inj) 4 mg IV Q8H PRN PRN Reason: Nausea And Vomiting Sodium Chloride (Sodium Chloride 0.9% 10 Ml Flush Syringe) 10 ml IV BID [facility] Last Admin: 10/12/21 10:21 Dose: 10 ml Sodium Chloride (Sodium Chloride 0.9% 10 Ml Flush Syringe) 10 ml IV PRN PRN PRN Reason: LINE FLUSH Tamsulosin HCl (Tamsulosin 0.4 Mg Cap) 0.4 mg PO QDAY [facility] Last Admin: 10/12/21 10:20 Dose: 0.4 mg Review of Systems Constitutional: no fever, no chills Cardiovascular: edema, no chest pain, no palpitations Respiratory: no cough, no shortness of breath Gastrointestinal: no abdominal pain, no nausea, no vomiting Genitourinary Male: no hematuria Exam - Vital Signs Vital signs: Vital Signs Temp Pulse Resp BP Pulse Ox 97.6 F 56 L 16 162/68 98 10/11/21 22:00 10/11/21 22:00 10/11/21 22:00 10/11/21 22:00 10/11/21 22:00 - General Appearance General appearance: other (Awake & alert) EENT: PERRL, hearing intact Neck: Present: neck supple. Absent: JVD/HJR Respiratory: Other (Good air entry) Heart: regular, S1S2 Gastrointestinal: Present: normal Integumentary: warm and dry Neurologic: no focal deficit, alert and oriented x3 Musculoskeletal: Present: other (Lt arm AVF +Bruit) Psychiatric: mood/affect appropriate Results - Lab Results 10/12/21 04:33 10/12/21 04:33 Most recent lab results Calcium 8.5 mg/dL (8.4-10.2) 10/12/21 04:33 Assessment and Plan CKD5/ESRD - S/p Fistulogram with repair of Lt arm AVF. Plan for initial HD in am Lytes - Kayexalate, Low K, High Bicarb bath on HD, f/u labs HTN - Resume Home meds but hold Metoprolol & f/u Bradycardia LE edema - UF on HD Thanks very much, will f/u with you
--- NOTE | 2021-10-12 14:15 | Operative Report ---
Operative Report Operative Report: EXAM: 1. Ultrasound-guided access of the left arm AV fistula cephalic vein, retrograde. 2. Selection of the brachial artery in a retrograde fashion. 3. Angiography of the left upper extremity. 4. Angioplasty of the peripheral dialysis access anastomosis with a 6 mm x 40 mm angioplasty balloon 5. Selection of the large collateral from the peripheral cephalic vein with angiography. 6. Selection of a second-order branch in the large collateral from the peripheral cephalic vein with angiography. 7. Coil embolization of the large collateral from the peripheral cephalic vein with an 8 mm x 40 cm Natalya standard coil DATE: 10/12/2021 PROPELLER INSPECTOR: ASHLEY GIBSON MD INDICATION: AV fistula malfunction with poor flow rates MEDICATIONS: Please see nursing report for full details. DEVICES: 6 mm x 40 mm angioplasty balloon 8 mm x 40 cm Natalya standard coil PROCEDURE: The risks, benefits, and alternatives of the procedure were discussed and written informed consent was obtained. The patient was transported in stable condition to the angiography suite. The patient's left arm AV fistula cephalic vein was assessed by ultrasound and was patent. The patient was prepped and draped in a sterile fashion. Under ultrasound guidance, the left arm AV cephalic vein was accessed with a 21- gauge micropuncture needle. The area was anesthetized prior to access. 0.018 inch wire was advanced through the micropuncture needle into the fistula and then the needle was exchanged for a 5 [place] transitional dilator. The inner dilator and wire were removed and a 0.035 inch wire was advanced through the fistula and into the brachial artery in a retrograde fashion. The transitional dilator was exchanged for a 6 [place] short sheath. Fistulogram was performed of the venous outflow and central veins. The brachial artery was selected with an angled catheter. Digital subtraction angiography was performed. Digital subtraction angiography demonstrated patency of the brachial artery. The brachial artery distal to the anastomosis was patent. The proximal radial artery, common interosseous ulnar artery, and proximal interosseous and proximal ulnar artery were patent. There was a 30 to 40% stenosis of the arterial anastomosis. There was a large collateral arising from the peripheral cephalic vein parasitizing a large amount of blood from the AV fistula. The mid cephalic vein was patent. The central cephalic vein had a small collateral arising from it. The cephalic arch was patent. The left innominate vein, left subclavian vein, and SVC were patent. 6 mm x 40 mm angioplasty balloon was used to perform angioplasty of the anastomosis. Digital subtraction angiography demonstrated less than 10% residual narrowing. The large collateral arising from the peripheral cephalic vein was selected and digital subtraction angiography was performed confirming position and demonstrating a large collateral network. In order to prevent migration, a second order collateral arising from the large first-order collateral was selected and with the use of a microcatheter an 8 mm x 40 cm Natalya standard coil was anchored in the second order collateral and then deployed in the large first-order collateral arising from the peripheral cephalic vein. After this was performed, digital subtraction angiography was performed demonstrating optimal coil placement. At this point, all wires, catheters, and sheaths are removed and site was closed with 3-0 Vicryl. Pressure was held until hemostasis was achieved. Patient tolerated the procedure well. No immediate postprocedural complications. IMPRESSION: Successful peripheral dialysis access angioplasty Successful coil embolization of a collateral arising from the peripheral cephalic vein
[2021-10-12] MEDS: CALCITRIOL 0.5 MCG CAP PO SCH (14:32)
[2021-10-12] MEDS ORDERED: SODIUM CHLORIDE 0.9% 100 ML IV PRN (14:36)
--- NOTE | 2021-10-12 14:43 | Consultation ---
History of Present Illness - Reason for Consult Consult date: 10/12/21 AV fistula malfunction Requesting physician: TITA SUTHERLAND - History of Present Illness 81-year-old male with end-stage renal disease who requires hemodialysis. Had brachial artery cephalic vein AV fistula creation on 08/25/2021. Contacted by Dr. Garcia to determine if the AV access can be used. Ultrasound was performed demonstrating low flow rates in the AV access. Discussed situation with the patient. Discussed PermCath, and fistulogram, angioplasty, and possible coiling and stenting. Risk, benefits, and alternatives discussed, procedure discussed with patient in depth. Past History Past Medical History: ESRD, hypertension, hyperlipidemia, other (bph, prostate cancer) Past Surgical History: Other (AV fistula, prostate radioactive seeding in 2013) Medications and Allergies Allergies Allergy/AdvReac Type Severity Reaction Status Date / Time Penicillins Allergy Hives Verified 10/11/21 15:30 Home Medications Medication Instructions Recorded Confirmed Last Taken Type Nebivolol HCl [Bystolic] 5 tab PO DAILY 08/16/18 10/11/21 10/11/21 History Rosuvastatin (Nf) [Crestor] 20 mg PO DAILY 08/16/18 10/11/21 10/11/21 History Tamsulosin [Flomax] 0.4 mg PO QDAY 08/16/18 10/11/21 10/11/21 History amLODIPine 10 mg PO DAILY 08/16/18 10/11/21 10/11/21 History Aspirin [[place] Aspirin EC] 81 mg PO DAILY 08/12/21 10/11/21 10/11/21 History Furosemide [Lasix TAB] 80 mg PO DAILY 08/12/21 10/11/21 10/11/21 History calcitrioL [Rocaltrol] 0.5 mcg PO QDAY 08/12/21 10/11/21 10/11/21 History Vitamin D3 5,000 UNIT 5,000 units PO DAILY 10/11/21 10/11/21 10/11/21 History Active Meds: Active Medications Acetaminophen (Acetaminophen 325 Mg Tab) 650 mg PO Q4H PRN PRN Reason: Pain MILD(1-3)/Fever >100.5/GODOY Amlodipine Besylate (Amlodipine 10 Mg Tab) 10 mg PO DAILY [facility] Aspirin (Aspirin Ec 81 Mg Tab) 81 mg PO DAILY [facility] Last Admin: 10/12/21 10:19 Dose: 81 mg Atorvastatin Calcium (Atorvastatin 40 Mg Tab) 40 mg PO QHS [facility] Calcitriol (Calcitriol 0.5 Mcg Cap) 0.5 mcg PO QDAY [facility] Last Admin: 10/12/21 14:32 Dose: 0.5 mcg Cholecalciferol (Cholecalciferol (Vit D3) 5,000 Unit Tab) 5,000 unit PO QDAY [facility] Last Admin: 10/12/21 10:20 Dose: 5,000 unit Famotidine (Famotidine 10 Mg Tab) 10 mg PO BID [facility] Last Admin: 10/12/21 10:19 Dose: 10 mg Clindamycin HCl (Cleocin 600 Mg/50 Ml) 600 mg in 50 mls @ 100 mls/hr IV PREOP NR; Protocol Stop: 10/12/21 20:00 Last Admin: 10/12/21 12:58 Dose: 50 mls Sodium Chloride (Nacl 0.9%) 100 mls @ 999 mls/hr IV [facility] PRN PRN Reason: Hypotension Morphine Sulfate (Morphine 2 Mg/1 Ml Inj) 2 mg IV Q4H PRN PRN Reason: Pain, Moderate (4-6) Ondansetron HCl (Ondansetron 4 Mg/2 Ml Inj) 4 mg IV Q8H PRN PRN Reason: Nausea And Vomiting Sodium Chloride (Sodium Chloride 0.9% 10 Ml Flush Syringe) 10 ml IV BID [facility] Last Admin: 10/12/21 10:21 Dose: 10 ml Sodium Chloride (Sodium Chloride 0.9% 10 Ml Flush Syringe) 10 ml IV PRN PRN PRN Reason: LINE FLUSH Tamsulosin HCl (Tamsulosin 0.4 Mg Cap) 0.4 mg PO QDAY [facility] Last Admin: 10/12/21 10:20 Dose: 0.4 mg Review of Systems All systems: negative (see HPI) Exam - Constitutional Vitals: Temp Pulse Resp BP Pulse Ox 100 F H 54 L 20 168/70 100 10/12/21 11:21 10/12/21 11:21 10/12/21 11:21 10/12/21 11:21 10/12/21 11:21 General appearance: Present: no acute distress - EENT Eyes: Present: EOM intact ENT: hearing intact - Neck Neck: Present: supple - Respiratory Respiratory effort: normal - Cardiovascular Rhythm: regular - Extremities Extremities: normal temperature, normal color, abnormal (Stronger thrill from the cephalic vein at the peripheral most aspect of the AV fistula. Weaker thrill at the mid and central portion of the AV fistula. No numbness or weakness of the left hand.) - Abdominal General gastrointestinal: Present: soft, non-tender - Psychiatric Psychiatric: appropriate mood/affect, cooperative Results - Labs CBC & Chem 7: 10/12/21 04:33 10/12/21 04:33 Labs: Abnormal lab results 10/11/21 10/11/21 10/12/21 Range/Units 21:08 21:08 04:33 RBC 2.87 L 2.77 L (3.65-5.03) M/mm3 Hgb 8.6 L 8.3 L (11.8-15.2) gm/dl Hct 25.7 L 24.7 L (35.5-45.6) % RDW 15.3 H (13.2-15.2) % [place] % (Auto) 14.0 H (0.0-7.3) % Seg Neuts % (Manual) 71.0 H (40.0-70.0) % Chloride 110.0 H (98-107) mmol/L Carbon Dioxide 17 L (22-30) mmol/L BUN 84 H (9-20) mg/dL Creatinine 5.9 H (0.8-1.3) mg/dL Glucose 132 H (75-100) mg/dL Total Protein 5.7 L (6.3-8.2) g/dL Albumin 3.5 L (3.9-5) g/dL 10/12/21 Range/Units 04:33 RBC (3.65-5.03) M/mm3 Hgb (11.8-15.2) gm/dl Hct (35.5-45.6) % RDW (13.2-15.2) % [place] % (Auto) (0.0-7.3) % Seg Neuts % (Manual) (40.0-70.0) % Chloride 112.2 H (98-107) mmol/L Carbon Dioxide 17 L (22-30) mmol/L BUN 84 H (9-20) mg/dL Creatinine 5.7 H (0.8-1.3) mg/dL Glucose (75-100) mg/dL Total Protein (6.3-8.2) g/dL Albumin (3.9-5) g/dL Assessment and Plan 81-year-old male with AV fistula with low flow rates requiring hemodialysis for end-stage renal disease. Discussed situation with the patient. Discussed PermCath, and fistulogram, angioplasty, and possible coiling and stenting. Risk, benefits, and alternatives discussed, procedure discussed with patient in depth.
--- NOTE | 2021-10-12 14:44 | Event Note ---
Date: 10/12/21 Successful AV fistula intervention with coiling. Due to coiling, recommend waiting until tomorrow for use of AV fistula. Discussed with nephrology.
[2021-10-13 00:59] LABS: Hepatitis B Surface Antigen Non-Reactive (Negative); Hepatitis C Virus Antibody Non-Reactive (NonReactive)
[2021-10-13 05:40] LABS: Basophils % (Auto) 0.9 % (0.0-1.8); Eosinophils # (Auto) 0.1 K/mm3 (0.0-0.4); Eosinophils % (Auto) 2.5 % (0.0-4.3); Hematocrit 25.4 % (35.5-45.6); Hemoglobin 8.5 gm/dl (11.8-15.2); Lymphocytes # (Auto) 1.2 K/mm3 (1.2-5.4); Lymphocytes % (Auto) 22.9 % (13.4-35.0); Mean Corpuscular HGB Conc 34 % (32-34); Mean Corpuscular Volume 90 fl (84-94); Monocytes # (Auto) 0.7 K/mm3 (0.0-0.8); Monocytes % (Auto) 14.4 % (0.0-7.3); Platelet Count 151 K/mm3 (140-440); Red Blood Count 2.83 M/mm3 (3.65-5.03); Red Cell Distribution Width 15.2 % (13.2-15.2)
[2021-10-13 05:57] LABS: Albumin 3.3 g/dL (3.9-5); Calcium 8.5 mg/dL (8.4-10.2)
--- NOTE | 2021-10-13 06:25 | Progress Note ---
Assessment and Plan - Patient Problems (1) ESRD needing dialysis Current Visit: Yes Status: Acute Plan to address problem: Patient has reached a threshold level where he needs hemodialysis Patient had AV fistula in August Vascular surgery to decide about the maturity of AV fistula for hemodialysis. If AV fistula cannot be used then he needs a new Vas-Cath (2) Hypertension Current Visit: Yes Status: Chronic Qualifiers: Hypertension type: primary hypertension Qualified Code(s): I10 - Essential (primary) hypertension Plan to address problem: Continue antihypertensives and adjust medications as necessary (3) HLD (hyperlipidemia) Current Visit: Yes Status: Chronic Qualifiers: Hyperlipidemia type: mixed hyperlipidemia Qualified Code(s): E78.2 - Mixed hyperlipidemia Plan to address problem: Continue statins (4) BPH (benign prostatic hyperplasia) Current Visit: Yes Status: Chronic Qualifiers: Lower urinary tract symptom presence: symptoms present Lower urinary tract symptom detail: unspecified Qualified Code(s): N40.1 - Benign prostatic hyperplasia with lower urinary tract symptoms Plan to address problem: Continue tamsulosin (5) Vitamin D deficiency Current Visit: Yes Status: Chronic Plan to address problem: Continue vitamin D at 5000 units (6) Anemia Current Visit: Yes Status: Chronic Qualifiers: Anemia type: due to chronic kidney disease Plan to address problem: Will defer to nephrology regarding Epogen (7) DVT prophylaxis Current Visit: Yes Status: Acute Plan to address problem: Patient on heparin and GI prophylaxis (8) Advance care planning Current Visit: Yes Status: Acute Plan to address problem: This is education collected, care plan discussed, diagnosis discussed, and prognosis discussed. Patient acknowledged understanding with care plan +30 minutes. 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 Creatinine is about 6 hyperkalemia. Patient is getting increasingly fatigued. Patient has a AV fistula in the left upper extremity about mid August. Vascular surgery to decide whether the AV fistula can be used or new Vas-Cath to be placed. Slight shortness of breath present. Generalized weakness present. No nausea or vomiting. No altered sensorium. No fever or chills.10/12/2021 10/12/2021 Follow Vas-Cath/initiation of hemodialysis using the AV fistula Defer to vascular surgery Objective - Constitutional Vitals: Vital Signs - 12hr 10/12/21 10/13/21 21:52 00:00 Temperature 98.3 F Pulse Rate 50 L Respiratory 17 16 Rate Blood Pressure 165/65 [Right] O2 Sat by Pulse 100 99 Oximetry General appearance: Present: no acute distress, well-nourished - EENT Eyes: PERRL, EOM intact ENT: hearing intact, clear oral mucosa Ears: bilateral: normal - Neck Neck: supple, normal ROM - Respiratory Respiratory effort: normal Respiratory: bilateral: CTA - Breasts Breasts: normal - Cardiovascular Heart rate: 78 Rhythm: regular Heart Sounds: Present: S1 & S2. Absent: gallop, rub Extremities: pulses intact, No edema, normal color, Full ROM - Gastrointestinal General gastrointestinal: Present: soft, non-tender, non-distended, normal bowel sounds - Genitourinary Male genitourinary: normal - Integumentary Integumentary: clear, warm, dry - Musculoskeletal Musculoskeletal: 1, strength equal bilaterally - Neurologic Neurologic: moves all extremities - Psychiatric Psychiatric: memory intact, appropriate mood/affect, intact judgment & insight - Labs CBC & Chem 7: 10/15/21 04:25 10/15/21 04:25 Labs: Abnormal lab results 10/12/21 10/13/21 10/13/21 Range/Units 04:33 04:29 04:29 RBC 2.83 L (3.65-5.03) M/mm3 Hgb 8.5 L (11.8-15.2) gm/dl Hct 25.4 L (35.5-45.6) % [place] % (Auto) 14.4 H (0.0-7.3) % Seg Neuts % (Manual) 71.0 H (40.0-70.0) % Potassium 5.5 H (3.6-5.0) mmol/L Chloride 110.6 H (98-107) mmol/L Carbon Dioxide 19 L (22-30) mmol/L BUN 77 H (9-20) mg/dL Creatinine 5.3 H (0.8-1.3) mg/dL Phosphorus 5.40 H (2.5-4.5) mg/dL Magnesium 1.50 L (1.7-2.3) mg/dL Total Protein 6.0 L (6.3-8.2) g/dL Albumin 3.3 L (3.9-5) g/dL
[2021-10-13] MEDS: TAMSULOSIN 0.4 MG CAP PO SCH (10:00)
[2021-10-13] MEDS: amLODIPine 10 MG TAB PO SCH (10:00)
[2021-10-13] MEDS: CHOLECALCIFEROL (VIT D3) 5,000 UNIT TAB PO SCH (10:00)
[2021-10-13] MEDS: CALCITRIOL 0.5 MCG CAP PO SCH (10:00)
[2021-10-13] MEDS: FAMOTIDINE 10 MG TAB PO SCH ×2 (10:00→21:48)
[2021-10-13] MEDS: ASPIRIN EC 81 MG TAB PO SCH (10:00)
--- NOTE | 2021-10-13 10:41 | Progress Note ---
Assessment and Plan CKD5/ESRD - S/p Fistulogram with repair/coiling Lt arm AVF. Initial HD today Lytes - Kayexalate, Low K, High Bicarb bath on HD, f/u labs HTN - Resume Home meds but hold Metoprolol & f/u Bradycardia LE edema - UF on HD Subjective Date of service: 10/13/21 Objective - Vital Signs Vital signs: Vital Signs - 12hr 10/13/21 00:00 Respiratory 16 Rate O2 Sat by Pulse 99 Oximetry - General Appearance General appearance: other (Awake & alert) EENT: PERRL, hearing intact Neck: no JVD, supple Respiratory: Present: Other (Good air entry) Cardiology: regular, normal heart rate, S1S2 Gastrointestinal: normal Neurologic: alert and oriented x3 - Lab 10/13/21 04:29 10/13/21 04:29 Most recent lab results Calcium 8.5 mg/dL (8.4-10.2) 10/13/21 04:29 Phosphorus 5.40 mg/dL (2.5-4.5) H 10/13/21 04:29 Magnesium 1.50 mg/dL (1.7-2.3) L 10/13/21 04:29 Medications & Allergies - Medications Allergies/Adverse Reactions: Allergies Penicillins Allergy (Verified 10/11/21 15:30) Hives Home Medications: Home Medications Medication Instructions Recorded Confirmed Last Taken Type Nebivolol HCl [Bystolic] 5 tab PO DAILY 08/16/18 10/11/21 10/11/21 History Rosuvastatin (Nf) [Crestor] 20 mg PO DAILY 08/16/18 10/11/21 10/11/21 History Tamsulosin [Flomax] 0.4 mg PO QDAY 08/16/18 10/11/21 10/11/21 History amLODIPine 10 mg PO DAILY 08/16/18 10/11/21 10/11/21 History Aspirin [[place] Aspirin EC] 81 mg PO DAILY 08/12/21 10/11/21 10/11/21 History Furosemide [Lasix TAB] 80 mg PO DAILY 08/12/21 10/11/21 10/11/21 History calcitrioL [Rocaltrol] 0.5 mcg PO QDAY 08/12/21 10/11/21 10/11/21 History Vitamin D3 5,000 UNIT 5,000 units PO DAILY 10/11/21 10/11/21 10/11/21 History Active Medications: Generic Name Dose Route Start Last Admin Trade Name Isamar PRN Reason Stop Dose Admin Acetaminophen 650 mg 10/11/21 19:00 Acetaminophen 325 Mg Tab PO Q4H PRN Pain MILD(1-3)/Fever >100.5/GODOY Amlodipine Besylate 10 mg 10/12/21 10:00 10/12/21 10:20 Amlodipine 10 Mg Tab PO Not Given DAILY [facility] Aspirin 81 mg 10/12/21 10:00 10/12/21 10:19 Aspirin Ec 81 Mg Tab PO 81 mg DAILY [facility] Administration Atorvastatin Calcium 40 mg 10/12/21 22:00 10/12/21 21:56 Atorvastatin 40 Mg Tab PO 40 mg QHS [facility] Administration Calcitriol 0.5 mcg 10/12/21 10:00 10/12/21 14:32 Calcitriol 0.5 Mcg Cap PO 0.5 mcg QDAY [facility] Administration Cholecalciferol 5,000 unit 10/12/21 10:00 10/12/21 10:20 Cholecalciferol (Vit D3) 5,000 Unit Tab PO 5,000 unit QDAY [facility] Administration Famotidine 10 mg 10/11/21 22:00 10/12/21 21:56 Famotidine 10 Mg Tab PO 10 mg BID [facility] Administration Sodium Chloride 100 mls @ 999 mls/hr 10/12/21 14:36 Nacl 0.9% IV NATHALIE PRN Hypotension Morphine Sulfate 2 mg 10/11/21 14:41 Morphine 2 Mg/1 Ml Inj IV Q4H PRN Pain, Moderate (4-6) Ondansetron HCl 4 mg 10/11/21 19:00 Ondansetron 4 Mg/2 Ml Inj IV Q8H PRN Nausea And Vomiting Sodium Chloride 10 ml 10/11/21 22:00 10/12/21 21:57 Sodium Chloride 0.9% 10 Ml Flush Syringe IV 10 ml BID [facility] Administration Sodium Chloride 10 ml 10/11/21 19:00 Sodium Chloride 0.9% 10 Ml Flush Syringe IV PRN PRN LINE FLUSH Tamsulosin HCl 0.4 mg 10/12/21 10:00 10/12/21 10:20 Tamsulosin 0.4 Mg Cap PO 0.4 mg QDAY [facility] Administration
[2021-10-13] MEDS ORDERED: SODIUM POLYSTYRENE 15 GM/60 ML ORAL LIQD PO NR (11:00)
[2021-10-14 06:45] LABS: Hematocrit 25.7 % (35.5-45.6); Hemoglobin 8.6 gm/dl (11.8-15.2); Mean Corpuscular HGB Conc 34 % (32-34); Mean Corpuscular Volume 90 fl (84-94); Platelet Count 143 K/mm3 (140-440); Red Blood Count 2.87 M/mm3 (3.65-5.03); Red Cell Distribution Width 15.2 % (13.2-15.2)
[2021-10-14 07:09] LABS: Calcium 8.4 mg/dL (8.4-10.2)
[2021-10-14 08:21] LABS: Anisocytosis 1+; Basophils % (Manual) 0 % (0.0-1.8); Hypochromasia 1+; Total Cells Counted 100
[2021-10-14 08:22] LABS: Ovalocytes 1+; Platelet Estimate Consistent w Auto
[2021-10-14] MEDS: TAMSULOSIN 0.4 MG CAP PO SCH (09:19)
[2021-10-14] MEDS: amLODIPine 10 MG TAB PO SCH (09:19)
[2021-10-14] MEDS: FAMOTIDINE 10 MG TAB PO SCH ×2 (09:19→22:58)
[2021-10-14] MEDS: ASPIRIN EC 81 MG TAB PO SCH (09:19)
[2021-10-14] MEDS: CHOLECALCIFEROL (VIT D3) 5,000 UNIT TAB PO SCH (09:19)
[2021-10-14] MEDS: CALCITRIOL 0.5 MCG CAP PO SCH (09:24)
[2021-10-14] MEDS ORDERED: SODIUM CHLORIDE 0.9% 100 ML IV PRN (11:54)
--- NOTE | 2021-10-14 11:57 | Progress Note ---
Assessment and Plan CKD5/ESRD - S/p Fistulogram with repair/coiling Lt arm AVF. Tolerated initial HD yesterday, repeat HD today Lytes - Replenish Mg, f/u labs HTN - F/u on meds LE edema - UF on HD Subjective Date of service: 10/14/21 Interval history: No new complaint Objective - Vital Signs Vital signs: Vital Signs - 12hr 10/14/21 10/14/21 08:33 09:19 Blood Pressure 154/72 O2 Sat by Pulse 98 Oximetry - General Appearance General appearance: other (Awake & verbally responsive) EENT: PERRL, hearing intact Neck: no JVD, supple Respiratory: Present: Other (Good air entry) Cardiology: regular, S1S2 Gastrointestinal: normal, other Integumentary: warm and dry Neurologic: no focal deficit - Lab 10/14/21 05:51 10/14/21 05:51 Most recent lab results Calcium 8.4 mg/dL (8.4-10.2) 10/14/21 05:51 Phosphorus 5.10 mg/dL (2.5-4.5) H 10/14/21 05:51 Magnesium 1.50 mg/dL (1.7-2.3) L 10/14/21 05:51 Medications & Allergies - Medications Allergies/Adverse Reactions: Allergies Penicillins Allergy (Verified 10/11/21 15:30) Hives Home Medications: Home Medications Medication Instructions Recorded Confirmed Last Taken Type Nebivolol HCl [Bystolic] 5 tab PO DAILY 08/16/18 10/11/21 10/11/21 History Tamsulosin [Flomax] 0.4 mg PO QDAY 08/16/18 10/11/21 10/11/21 History amLODIPine 10 mg PO DAILY 08/16/18 10/11/21 10/11/21 History Aspirin [[place] Aspirin EC] 81 mg PO DAILY 08/12/21 10/11/21 10/11/21 History Furosemide [Lasix TAB] 80 mg PO DAILY 08/12/21 10/11/21 10/11/21 History calcitrioL [Rocaltrol] 0.5 mcg PO QDAY 08/12/21 10/11/21 10/11/21 History Cholecalciferol (Vitamin D3) 5,000 unit PO QDAY 10/14/21 10/14/21 10/11/21 History [Vitamin D3 5,000 UNIT] Rosuvastatin Calcium [Crestor] 20 mg PO QDAY 10/14/21 10/14/21 10/11/21 History Active Medications: Generic Name Dose Route Start Last Admin Trade Name Freq PRN Reason Stop Dose Admin Acetaminophen 650 mg 10/11/21 19:00 Acetaminophen 325 Mg Tab PO Q4H PRN Pain MILD(1-3)/Fever >100.5/GODOY Amlodipine Besylate 10 mg 10/12/21 10:00 10/14/21 09:19 Amlodipine 10 Mg Tab PO 10 mg DAILY HENRIQUE Administration Aspirin 81 mg 10/12/21 10:00 10/14/21 09:19 Aspirin Ec 81 Mg Tab PO 81 mg DAILY HENRIQUE Administration Atorvastatin Calcium 40 mg 10/12/21 22:00 10/13/21 21:48 Atorvastatin 40 Mg Tab PO 40 mg QHS HENRIQUE Administration Calcitriol 0.5 mcg 10/12/21 10:00 10/14/21 09:24 Calcitriol 0.5 Mcg Cap PO 0.5 mcg QDAY HENRIQUE Administration Cholecalciferol 5,000 unit 10/12/21 10:00 10/14/21 09:19 Cholecalciferol (Vit D3) 5,000 Unit Tab PO 5,000 unit QDAY HENRIQUE Administration Famotidine 10 mg 10/11/21 22:00 10/14/21 09:19 Famotidine 10 Mg Tab PO 10 mg BID HENRIQUE Administration Sodium Chloride 100 mls @ 999 mls/hr 10/12/21 14:36 Nacl 0.9% IV NATHALIE PRN Hypotension Morphine Sulfate 2 mg 10/11/21 14:41 Morphine 2 Mg/1 Ml Inj IV Q4H PRN Pain, Moderate (4-6) Ondansetron HCl 4 mg 10/11/21 19:00 Ondansetron 4 Mg/2 Ml Inj IV Q8H PRN Nausea And Vomiting Sodium Chloride 10 ml 10/11/21 22:00 10/14/21 09:19 Sodium Chloride 0.9% 10 Ml Flush Syringe IV 10 ml BID HENRIQUE Administration Sodium Chloride 10 ml 10/11/21 19:00 Sodium Chloride 0.9% 10 Ml Flush Syringe IV PRN PRN LINE FLUSH Tamsulosin HCl 0.4 mg 10/12/21 10:00 10/14/21 09:19 Tamsulosin 0.4 Mg Cap PO 0.4 mg QDAY HENRIQUE Administration
--- NOTE | 2021-10-14 13:55 | Event Note ---
Date: 10/14/21 Contacted by HD. Had HD which was uneventful yesterday. Today was told access is thrombosed by technologist. Will set patient up for possible permcath and possible AV access thrombectomy. May just be infiltrated. Ordered fistula ultrasound.
--- NOTE | 2021-10-14 15:17 | XRay Report ---
CHEST 2 VIEWS INDICATION / CLINICAL INFORMATION: SOB. COMPARISON: None available. FINDINGS: SUPPORT DEVICES: None. HEART / MEDIASTINUM: No significant abnormality. LUNGS / PLEURA: No significant pulmonary or pleural abnormality. No pneumothorax. ADDITIONAL FINDINGS: No significant additional findings. IMPRESSION: 1. No acute findings. Signer Name: Rickey Ruvalcaba Jr, MD Signed: 10/14/2021 3:12 PM Workstation Name: [id number]
--- NOTE | 2021-10-14 15:55 | Vascular Lab Report ---
DOPPLER ULTRASOUND UPPER EXTREMITY VASCULAR, LEFT INDICATION / CLINICAL INFORMATION: left arm avf TECHNIQUE: Grayscale, color and spectral Doppler imaging of the venous system of the upper extremity was performed. COMPARISON: Left upper extremity AV fistula vascular ultrasound 10/11/2021. FINDINGS: Left upper extremity AV fistula. Brachial artery velocity proximal to the anastomosis is 243 cm/s. Th e anastomosis appears patent. Within the fistula, peak systolic velocity is 354 cm/s. At the level of the distal, mid, and proximal biceps peak systolic velocities measure 216 cm/s, 396 cm/s, and 595 cm /s respectively. At the level of the axilla peak systolic velocity is 185 cm/s. The outflow tract sys tolic velocity is 370 cm/s. The inflow tract systolic velocity is 440 cm/s. Peak systolic velocity wi thin the subclavian vein is 162 cm/s. Volume flow rate measures between 410 mL/m and 435 mL/m. Additional Findings: There is stenosis noted at the level of the proximal biceps with thrombus visual ized from the level of the axilla to the outflow tract. IMPRESSION: 1. Patent AV fistula/graft with measurements as above. Stenosis is noted at the level of the proximal biceps with nonocclusive thrombus visualized from the axilla to the outflow tract. The results were communicated by the french cord binder to Dr. Recinos at 1458. Scribed by: Shalini Thomson RDMS, BRADT, JOVANNA Scribed: 10/14/2021 2:28 PM I have reviewed the images, agree with this report, and edited this report as needed. Signer Name: Jerry Marks MD Signed: 10/14/2021 3:51 PM Workstation Name: [facility]
[2021-10-14] MEDS ORDERED: MAGNESIUM SULFATE 2 GM/50 ML BAG IV ONE (18:00)
--- NOTE | 2021-10-14 22:23 | Progress Note ---
Assessment and Plan - Patient Problems (1) ESRD needing dialysis Current Visit: Yes Status: Acute Plan to address problem: Patient has reached a threshold level where he needs hemodialysis Patient had AV fistula in August Vascular surgery consult and follow-up appreciated (2) Hypertension Current Visit: Yes Status: Chronic Qualifiers: Hypertension type: primary hypertension Qualified Code(s): I10 - Essential (primary) hypertension Plan to address problem: Continue antihypertensives and adjust medications as necessary (3) HLD (hyperlipidemia) Current Visit: Yes Status: Chronic Qualifiers: Hyperlipidemia type: mixed hyperlipidemia Qualified Code(s): E78.2 - Mixed hyperlipidemia Plan to address problem: Continue statins (4) BPH (benign prostatic hyperplasia) Current Visit: Yes Status: Chronic Qualifiers: Lower urinary tract symptom presence: symptoms present Lower urinary tract symptom detail: unspecified Qualified Code(s): N40.1 - Benign prostatic hyperplasia with lower urinary tract symptoms Plan to address problem: Continue tamsulosin (5) Vitamin D deficiency Current Visit: Yes Status: Chronic Plan to address problem: Continue vitamin D at 5000 units (6) Anemia Current Visit: Yes Status: Chronic Qualifiers: Anemia type: due to chronic kidney disease Plan to address problem: Will defer to nephrology regarding Epogen (7) DVT prophylaxis Current Visit: Yes Status: Acute Plan to address problem: Patient on heparin and GI prophylaxis (8) Advance care planning Current Visit: Yes Status: Acute Plan to address problem: This is education collected, care plan discussed, diagnosis discussed, and prognosis discussed. Patient acknowledged understanding with care plan +30 minutes. Subjective Date of service: 10/13/21 Principal diagnosis: ESRD needing hemodialysis Interval history: 81-year-old -[place] male history of chronic chronic kidney disease which has been progressing over the last 5 years--was sent by his career development specialist Caroline Garcia for first-time dialysis. Creatinine is about 6 hyperkalemia. Patient is getting increasingly fatigued. Patient has a AV fistula in the left upper extremity about mid August. Vascular surgery to decide whether the AV fistula can be used or new Vas-Cath to be placed. Slight shortness of breath present. Generalized weakness present. No nausea or vomiting. No altered sensorium. No fever or chills.10/12/2021 10/12/2021 Follow Vas-Cath/initiation of hemodialysis using the AV fistula Defer to vascular surgery 10/13/2021 Successful AV fistula intervention with coiling. Due to coiling, recommend waiting until today Objective - Constitutional Vitals: Vital Signs - 12hr 10/14/21 10/14/21 10/14/21 11:40 16:13 21:39 Temperature 98.4 F 98.5 F 98.8 F Pulse Rate 55 L 51 L 58 L Respiratory 16 16 20 Rate Blood Pressure 156/68 155/72 151/65 O2 Sat by Pulse 97 100 98 Oximetry General appearance: Present: no acute distress, well-nourished - EENT Eyes: PERRL, EOM intact ENT: hearing intact, clear oral mucosa Ears: bilateral: normal - Neck Neck: supple, normal ROM - Respiratory Respiratory effort: normal Respiratory: bilateral: CTA - Breasts Breasts: normal - Cardiovascular Heart rate: 78 Rhythm: regular Heart Sounds: Present: S1 & S2. Absent: gallop, rub Extremities: pulses intact, No edema, normal color, Full ROM - Gastrointestinal General gastrointestinal: Present: soft, non-tender, non-distended, normal bowel sounds - Genitourinary Male genitourinary: normal - Integumentary Integumentary: clear, warm, dry - Musculoskeletal Musculoskeletal: 1, strength equal bilaterally - Neurologic Neurologic: moves all extremities - Psychiatric Psychiatric: memory intact, appropriate mood/affect, intact judgment & insight - Labs CBC & Chem 7: 10/15/21 04:25 10/15/21 04:25 Labs: Abnormal lab results 10/14/21 10/14/21 Range/Units 05:51 05:51 RBC 2.87 L (3.65-5.03) M/mm3 Hgb 8.6 L (11.8-15.2) gm/dl Hct 25.7 L (35.5-45.6) % Seg Neuts % (Manual) 79.0 H (40.0-70.0) % Lymphocytes # (Manual) 0.8 L (1.2-5.4) K/mm3 Chloride 108.7 H (98-107) mmol/L Carbon Dioxide 21 L (22-30) mmol/L BUN 61 H (9-20) mg/dL Creatinine 5.3 H (0.8-1.3) mg/dL Phosphorus 5.10 H (2.5-4.5) mg/dL Magnesium 1.50 L (1.7-2.3) mg/dL
--- NOTE | 2021-10-14 22:24 | Progress Note ---
Assessment and Plan - Patient Problems (1) ESRD needing dialysis Current Visit: Yes Status: Acute Plan to address problem: Patient has reached a threshold level where he needs hemodialysis Patient had AV fistula in August Vascular surgery to decide about the maturity of AV fistula for hemodialysis. If AV fistula cannot be used then he needs a new Vas-Cath (2) Hypertension Current Visit: Yes Status: Chronic Qualifiers: Hypertension type: primary hypertension Qualified Code(s): I10 - Essential (primary) hypertension Plan to address problem: Continue antihypertensives and adjust medications as necessary (3) HLD (hyperlipidemia) Current Visit: Yes Status: Chronic Qualifiers: Hyperlipidemia type: mixed hyperlipidemia Qualified Code(s): E78.2 - Mixed hyperlipidemia Plan to address problem: Continue statins (4) BPH (benign prostatic hyperplasia) Current Visit: Yes Status: Chronic Qualifiers: Lower urinary tract symptom presence: symptoms present Lower urinary tract symptom detail: unspecified Qualified Code(s): N40.1 - Benign prostatic hyperplasia with lower urinary tract symptoms Plan to address problem: Continue tamsulosin (5) Vitamin D deficiency Current Visit: Yes Status: Chronic Plan to address problem: Continue vitamin D at 5000 units (6) Anemia Current Visit: Yes Status: Chronic Qualifiers: Anemia type: due to chronic kidney disease Plan to address problem: Will defer to nephrology regarding Epogen (7) DVT prophylaxis Current Visit: Yes Status: Acute Plan to address problem: Patient on heparin and GI prophylaxis (8) Advance care planning Current Visit: Yes Status: Acute Plan to address problem: This is education collected, care plan discussed, diagnosis discussed, and prognosis discussed. Patient acknowledged understanding with care plan +30 minutes. Subjective Date of service: 10/14/21 Principal diagnosis: ESRD needing hemodialysis Interval history: 81-year-old -[place] male history of chronic chronic kidney disease which has been progressing over the last 5 years--was sent by his slasher sawyer Dr. Garcia for first-time dialysis. Creatinine is about 6 hyperkalemia. Patient is getting increasingly fatigued. Patient has a AV fistula in the left upper extremity about mid August. Vascular surgery to decide whether the AV fistula can be used or new Vas-Cath to be placed. Slight shortness of breath present. Generalized weakness present. No nausea or vomiting. No altered sensorium. No fever or chills.10/12/2021 10/12/2021 Follow Vas-Cath/initiation of hemodialysis using the AV fistula Defer to vascular surgery 10/13/2021 Successful AV fistula intervention with coiling. Due to coiling, recommend waiting until today 10/14/2021 Had HD which was uneventful yesterday Possible thrombosis of AV fistula Vas-Cath and thrombectomy if ultrasound is positive for thrombosis Objective - Constitutional Vitals: Vital Signs - 12hr 10/14/21 10/14/21 10/14/21 11:40 16:13 21:39 Temperature 98.4 F 98.5 F 98.8 F Pulse Rate 55 L 51 L 58 L Respiratory 16 16 20 Rate Blood Pressure 156/68 155/72 151/65 O2 Sat by Pulse 97 100 98 Oximetry General appearance: Present: no acute distress, well-nourished - EENT Eyes: PERRL, EOM intact ENT: hearing intact, clear oral mucosa Ears: bilateral: normal - Neck Neck: supple, normal ROM - Respiratory Respiratory effort: normal Respiratory: bilateral: CTA - Breasts Breasts: normal - Cardiovascular Heart rate: 78 Rhythm: regular Heart Sounds: Present: S1 & S2. Absent: gallop, rub Extremities: pulses intact, No edema, normal color, Full ROM - Gastrointestinal General gastrointestinal: Present: soft, non-tender, non-distended, normal bowel sounds - Genitourinary Male genitourinary: normal - Integumentary Integumentary: clear, warm, dry - Musculoskeletal Musculoskeletal: 1, strength equal bilaterally - Neurologic Neurologic: moves all extremities - Psychiatric Psychiatric: memory intact, appropriate mood/affect, intact judgment & insight - Labs CBC & Chem 7: 10/15/21 04:25 10/15/21 04:25 Labs: Abnormal lab results 10/14/21 10/14/21 Range/Units 05:51 05:51 RBC 2.87 L (3.65-5.03) M/mm3 Hgb 8.6 L (11.8-15.2) gm/dl Hct 25.7 L (35.5-45.6) % Seg Neuts % (Manual) 79.0 H (40.0-70.0) % Lymphocytes # (Manual) 0.8 L (1.2-5.4) K/mm3 Chloride 108.7 H (98-107) mmol/L Carbon Dioxide 21 L (22-30) mmol/L BUN 61 H (9-20) mg/dL Creatinine 5.3 H (0.8-1.3) mg/dL Phosphorus 5.10 H (2.5-4.5) mg/dL Magnesium 1.50 L (1.7-2.3) mg/dL
[2021-10-15 05:10] LABS: Basophils % (Auto) 0.8 % (0.0-1.8); Eosinophils # (Auto) 0.1 K/mm3 (0.0-0.4); Eosinophils % (Auto) 2.3 % (0.0-4.3); Hematocrit 23.9 % (35.5-45.6); Hemoglobin 8.1 gm/dl (11.8-15.2); Lymphocytes # (Auto) 1.4 K/mm3 (1.2-5.4); Lymphocytes % (Auto) 24.1 % (13.4-35.0); Mean Corpuscular HGB Conc 34 % (32-34); Mean Corpuscular Volume 88 fl (84-94); Monocytes # (Auto) 0.8 K/mm3 (0.0-0.8); Monocytes % (Auto) 13.6 % (0.0-7.3); Platelet Count 147 K/mm3 (140-440); Red Blood Count 2.71 M/mm3 (3.65-5.03); Red Cell Distribution Width 14.8 % (13.2-15.2)
[2021-10-15 05:26] LABS: Calcium 8.3 mg/dL (8.4-10.2)
--- NOTE | 2021-10-15 09:42 | Event Note ---
Date: 10/15/21 Patient left arm AVF with robust thrill. There is evidence of infiltration over the venous outflow, which likely corresponds with the reported "thrombus" in the fistula. No evidence of outflow obstruction on physical exam. Would recommend accessing the fistula near the arterial inflow as all of the access punctures are in the proximal arm.
[2021-10-15] MEDS: amLODIPine 10 MG TAB PO SCH (10:32)
[2021-10-15] MEDS: TAMSULOSIN 0.4 MG CAP PO SCH (10:32)
[2021-10-15] MEDS: ASPIRIN EC 81 MG TAB PO SCH (10:33)
[2021-10-15] MEDS: FAMOTIDINE 10 MG TAB PO SCH (10:33)
[2021-10-15] MEDS: CALCITRIOL 0.5 MCG CAP PO SCH (10:33)
[2021-10-15] MEDS: CHOLECALCIFEROL (VIT D3) 5,000 UNIT TAB PO SCH (10:33)
--- NOTE | 2021-10-15 13:39 | Progress Note ---
Assessment and Plan CKD5/ESRD - Reviewed AVF with HD Nurse, +Bruit & thrill, explained best cannulation site per Vas Surgeon's suggestion Lytes - F/u labs HTN - F/u on meds LE edema - UF on HD Subjective Principal diagnosis: ESRD needing hemodialysis Interval history: HD Nurse had problem cannulating pt's Lt arm AVF & pt reviewed by [facility] Surg, found access with good bruit & thrill, then explained best area to cannulate Objective - Vital Signs Vital signs: Vital Signs - 12hr 10/15/21 10/15/21 10/15/21 05:44 10:32 10:54 Temperature 98.1 F Pulse Rate 54 L Respiratory 18 Rate Blood Pressure 153/70 156/76 O2 Sat by Pulse 96 98 Oximetry - General Appearance General appearance: other (Awake & alert) EENT: PERRL Neck: no JVD Respiratory: Present: Clear to Ascultation Cardiology: regular, bradycardia, S1S2 Gastrointestinal: normal Neurologic: no focal deficit - Lab 10/15/21 04:25 10/15/21 04:25 Most recent lab results Calcium 8.3 mg/dL (8.4-10.2) L 10/15/21 04:25 Phosphorus 5.10 mg/dL (2.5-4.5) H 10/14/21 05:51 Magnesium 1.70 mg/dL (1.7-2.3) 10/15/21 04:25 Medications & Allergies - Medications Allergies/Adverse Reactions: Allergies Penicillins Allergy (Verified 10/11/21 15:30) Hives Home Medications: Home Medications Medication Instructions Recorded Confirmed Last Taken Type Nebivolol HCl [Bystolic] 5 tab PO DAILY 08/16/18 10/11/21 10/11/21 History Tamsulosin [Flomax] 0.4 mg PO QDAY 08/16/18 10/11/21 10/11/21 History amLODIPine 10 mg PO DAILY 08/16/18 10/11/21 10/11/21 History Aspirin [[place] Aspirin EC] 81 mg PO DAILY 08/12/21 10/11/21 10/11/21 History Furosemide [Lasix TAB] 80 mg PO DAILY 08/12/21 10/11/21 10/11/21 History calcitrioL [Rocaltrol] 0.5 mcg PO QDAY 06/11/2510/11/21 10/11/21 History Cholecalciferol (Vitamin D3) 5,000 unit PO QDAY 10/14/21 10/14/21 10/11/21 History [Vitamin D3 5,000 UNIT] Rosuvastatin Calcium [Crestor] 20 mg PO QDAY 10/14/21 10/14/21 10/11/21 History Active Medications: Generic Name Dose Route Start Last Admin Trade Name Freq PRN Reason Stop Dose Admin Acetaminophen 650 mg 10/11/21 19:00 Acetaminophen 325 Mg Tab PO Q4H PRN Pain MILD(1-3)/Fever >100.5/GODOY Amlodipine Besylate 10 mg 10/12/21 10:00 10/15/21 10:32 Amlodipine 10 Mg Tab PO 10 mg DAILY HENRIQUE Administration Aspirin 81 mg 10/12/21 10:00 10/15/21 10:33 Aspirin Ec 81 Mg Tab PO 81 mg DAILY HENRIQUE Administration Atorvastatin Calcium 40 mg 10/12/21 22:00 10/14/21 22:58 Atorvastatin 40 Mg Tab PO 40 mg QHS HENRIQUE Administration Calcitriol 0.5 mcg 10/12/21 10:00 10/15/21 10:33 Calcitriol 0.5 Mcg Cap PO 0.5 mcg QDAY HENRIQUE Administration Cholecalciferol 5,000 unit 10/12/21 10:00 10/15/21 10:33 Cholecalciferol (Vit D3) 5,000 Unit Tab PO 5,000 unit QDAY HENRIQUE Administration Famotidine 10 mg 10/11/21 22:00 10/15/21 10:33 Famotidine 10 Mg Tab PO 10 mg BID HENRIQUE Administration Sodium Chloride 100 mls @ 999 mls/hr 10/12/21 14:36 Nacl 0.9% IV NATHALIE PRN Hypotension Sodium Chloride 100 mls @ 999 mls/hr 10/14/21 11:54 Nacl 0.9% IV NATHALIE PRN Hypotension Morphine Sulfate 2 mg 10/11/21 14:41 Morphine 2 Mg/1 Ml Inj IV Q4H PRN Pain, Moderate (4-6) Ondansetron HCl 4 mg 10/11/21 19:00 Ondansetron 4 Mg/2 Ml Inj IV Q8H PRN Nausea And Vomiting Sodium Chloride 10 ml 10/11/21 22:00 10/15/21 10:38 Sodium Chloride 0.9% 10 Ml Flush Syringe IV 10 ml BID HENRIQUE Administration Sodium Chloride 10 ml 10/11/21 19:00 Sodium Chloride 0.9% 10 Ml Flush Syringe IV PRN PRN LINE FLUSH Tamsulosin HCl 0.4 mg 10/12/21 10:00 10/15/21 10:32 Tamsulosin 0.4 Mg Cap PO 0.4 mg QDAY HENRIQUE Administration
--- NOTE | 2021-10-15 17:35 | Discharge Summary ---
Providers - Providers Date of Admission: 10/11/21 15:39 Date of discharge: 10/15/21 Attending physician: TITA SUTHERLAND 10/11/21 Consult to Case Management [CONS] Routine Services Needed at Discharge: Casing Sewer Notified:: GREGG 10/11/21 14:47 Consult to Physician [CONS] Urgent Comment: Consulting Provider: NAVARRO MAX Physician Instructions: Reason For Exam: NEW ONSET ESRD NEEDING DIALYSIS 10/11/21 19:02 Consult to Physician [CONS] Routine Comment: Consulting Provider: ASHLEY GIBSON Physician Instructions: Reason For Exam: vas cath for HD Primary care physician: LINDA MORAN Hospitalization Disposition: HOME / SELF CARE / HOMELESS - Discharge Diagnoses (1) ESRD needing dialysis Status: Acute (2) Hypertension Status: Chronic Qualifiers: Hypertension type: primary hypertension Qualified Code(s): I10 - Essential (primary) hypertension (3) HLD (hyperlipidemia) Status: Chronic Qualifiers: Hyperlipidemia type: mixed hyperlipidemia Qualified Code(s): E78.2 - Mixed hyperlipidemia (4) BPH (benign prostatic hyperplasia) Status: Chronic Qualifiers: Lower urinary tract symptom presence: symptoms present Lower urinary tract symptom detail: unspecified Qualified Code(s): N40.1 - Benign prostatic hyperplasia with lower urinary tract symptoms (5) Vitamin D deficiency Status: Chronic (6) Anemia Status: Chronic Qualifiers: Anemia type: due to chronic kidney disease (7) DVT prophylaxis Status: Acute (8) Advance care planning Status: Acute Core Measure Documentation - Palliative Care Palliative Care/ Comfort Measures: Not Applicable - Core Measures Any of the following diagnoses?: none Exam - Constitutional Vitals: Temp Pulse Resp BP Pulse Ox 98.2 F 61 18 171/83 100 10/15/21 13:15 10/15/21 17:15 10/15/21 13:15 10/15/21 17:15 10/15/21 13:15 General appearance: Present: no acute distress, well-nourished - EENT Eyes: Present: PERRL ENT: hearing intact, clear oral mucosa - Neck Neck: Present: supple, normal ROM - Respiratory Respiratory effort: normal Respiratory: bilateral: CTA - Cardiovascular Heart rate: 78 Rhythm: regular Heart Sounds: Present: S1 & S2. Absent: rub, click - Extremities Extremities: pulses symmetrical, No edema Peripheral Pulses: within normal limits - Abdominal General gastrointestinal: Present: soft, non-tender, non-distended, normal bowel sounds Male genitourinary: Present: normal - Integumentary Integumentary: Present: clear, warm, dry - Musculoskeletal Musculoskeletal: gait normal, strength equal bilaterally - Psychiatric Psychiatric: appropriate mood/affect, intact judgment & insight - Neurologic Neurologic: CNII-XII intact, moves all extremities Plan Follow up with: LINDA MORAN MD [Primary Care Provider] - 7 Days Prescriptions: amLODIPine 10 mg PO DAILY 30 Days #30 tablet Nebivolol HCl [Bystolic] 5 tab PO DAILY 30 Days #30 Rosuvastatin Calcium [Crestor] 20 mg PO QDAY 30 Days #30 Tamsulosin [Flomax] 0.4 mg PO QDAY #30 capsule Aspirin EC [Halfprin EC] 81 mg PO DAILY 30 Days #30 tablet Furosemide [Lasix TAB] 80 mg PO DAILY 30 Days #30 calcitrioL [Rocaltrol] 0.5 mcg PO QDAY 30 Days #30 cap Cholecalciferol (Vitamin D3) [Vitamin D3 5,000 UNIT] 5,000 unit PO QDAY 30 Days #30 cap
[2021-10-15 18:19] VITALS: BP 175/82
== END 2021-10-15 19:05 | disposition home or self-care (01) | DRG 673 ==
LOC: 3A 14:15 → UNDOADMIN 14:15 → 3A 15:39
PROVIDERS: ADMIT Internal Medicine; ATTEND Internal Medicine
PROC: 05LF3DZ Occlusion of Left Cephalic Vein with Intraluminal Device, Percutaneous Approach (ICD-10-PCS; principal; 2021-10-12)
PROC: 057F3ZZ Dilation of Left Cephalic Vein, Percutaneous Approach (ICD-10-PCS; 2021-10-12)
PROC: B31J1ZZ Fluoroscopy of Left Upper Extremity Arteries using Low Osmolar Contrast (ICD-10-PCS; 2021-10-12)
PROC: 5A1D70Z Performance of Urinary Filtration, Intermittent, Less than 6 Hours Per Day (ICD-10-PCS; 2021-10-14)
PROC: 5A1D70Z Performance of Urinary Filtration, Intermittent, Less than 6 Hours Per Day (ICD-10-PCS; 2021-10-15)
DX: T82.41XA Breakdown (mechanical) of vascular dialysis catheter, initial encounter (principal); N18.6 End stage renal disease; I12.0 Hypertensive chronic kidney disease with stage 5 chronic kidney disease or end stage renal disease; E87.5 Hyperkalemia; I77.0 Arteriovenous fistula, acquired; D63.1 Anemia in chronic kidney disease; N40.1 Benign prostatic hyperplasia with lower urinary tract symptoms; Z88.0 Allergy status to penicillin; E78.2 Mixed hyperlipidemia; N40.0 Benign prostatic hyperplasia without lower urinary tract symptoms
CPT/HCPCS: 36415; 36902; 37241; 71046; 80048; 80053; 80074; 83735; 84100; 85007; 85025; 93990; G0378; J3490; J7502; C1725; C1769; C1887; C1894; J1644; J2250; J3010; J3475; J7040; Q9967; U0003

== ENCOUNTER 2021-10-22 06:43 | Day surgery (SDC) | payer MEDICARE ==
[2021-10-22 07:52] LABS: Hematocrit 24.5 % (35.5-45.6); Hemoglobin 8.3 gm/dl (11.8-15.2); Mean Corpuscular HGB Conc 34 % (32-34); Mean Corpuscular Volume 90 fl (84-94); Platelet Count 168 K/mm3 (140-440); Red Blood Count 2.74 M/mm3 (3.65-5.03); Red Cell Distribution Width 14.6 % (13.2-15.2)
[2021-10-22] MEDS ORDERED: SODIUM CHLORIDE 0.9% 500 ML 500 ML IV SCH (08:00)
[2021-10-22 08:02] LABS: INR 0.95 (0.87-1.13)
[2021-10-22 08:03] LABS: Partial Thromboplastin Time 29.6 Sec. (24.2-36.6)
[2021-10-22 08:05] LABS: Calcium 9.4 mg/dL (8.4-10.2)
[2021-10-22] MEDS ORDERED: HEPARIN/NS 5000 UNIT/500ML 1,000 ML IR ONE (08:23)
--- NOTE | 2021-10-22 08:35 | Short Stay Summary ---
Short Stay Documentation Date of service: 10/22/21 Narrative H&P: The patient is an 81-year-old male with a history of end-stage renal disease who was on hemodialysis through a left arm arteriovenous fistula. There had difficulty cannulating the fistula at his dialysis center so he is in need of a fistulogram with possible intervention. I discussed the risk, benefits, and alternative procedures and the patient has expressed understanding and agrees to proceed. The patient has no additional complaints at this time. - History Past Medical History: dialysis, ESRD, heart failure, hypertension, hyperlipidemia, other (PBH) Past Surgical History: TURP, Other (Creation of left brachiocephalic arteriovenous fistula) - Allergies and Medications Current Medications: Allergies Penicillins Allergy (Verified 10/11/21 15:30) Hives Home Medications Medication Instructions Recorded Confirmed Last Taken Type Aspirin EC [Halfprin EC] 81 mg PO DAILY 30 Days #30 tablet 10/15/21 Unknown Rx Cholecalciferol (Vitamin D3) 5,000 unit PO QDAY 30 Days #30 cap 10/15/21 Unknown Rx [Vitamin D3 5,000 UNIT] Furosemide [Lasix TAB] 80 mg PO DAILY 30 Days #30 10/15/21 Unknown Rx Nebivolol HCl [Bystolic] 5 tab PO DAILY 30 Days #30 10/15/21 Unknown Rx Rosuvastatin Calcium [Crestor] 20 mg PO QDAY 30 Days #30 10/15/21 Unknown Rx Tamsulosin [Flomax] 0.4 mg PO QDAY #30 capsule 10/15/21 Unknown Rx amLODIPine 10 mg PO DAILY 30 Days #30 tablet 10/15/21 Unknown Rx calcitrioL [Rocaltrol] 0.5 mcg PO QDAY 30 Days #30 cap 10/15/21 Unknown Rx Active Medications Sodium Chloride (Nacl 0.9% 500 Ml) 500 mls @ 50 mls/hr IV DIRECT HENRIQUE - Physical exam General appearance: no acute distress Lungs: Normal air movement Heart: Regular rate Gastrointestinal: normal Male Genitourinary: deferred Rectal Exam: deferred Extremities: abnormal (Left arm AV fistula with palpable thrill, diffuse ecchymosis around the fistula with several areas of overlying hematoma, no pseudoaneurysm formation noted) - Brief post op/procedure progress note Date of procedure: 10/22/21 Pre-op diagnosis: Complications of Dialysis Access Post-op diagnosis: same Procedure: 1. Access Left Arm AV Fistula with 7 Armenian Sheath Venous 2. Diagnostic Fistulogram and Central Venogram and Arterial Reflux 3. Angioplasty of Left Arm AV Fistula with 8 x 100 Schulter Balloon 4. Coil Embolization of AV Fistula Sidebranch with [employer] 6 x 20 cm Interlock Coil 5. Radiologic Supervision with Interpretation 6. Monitored Moderate Sedation (Total Anesthesia Time: 54 Minutes) Anesthesia: local, other (Monitored Moderate Sedation) Surgeon: JERILYN HOANG Estimated blood loss: minimal Pathology: none Condition: stable - Disposition Condition at discharge: Good Disposition: 01 HOME / SELF CARE / HOMELESS Short Stay Discharge Plan Activity: other (Okay to use the left arm AVF for dialysis) Wound: remove dressing (Remove dressing in 24 hours. Remove the suture by pulling the longer of the 2 strings.) Follow up with: JERILYN HOANG MD [Staff Physician] - 14 Days
[2021-10-22] MEDS ORDERED: CLINDAMYCIN IV ONE (08:47)
[2021-10-22] MEDS ORDERED: SODIUM CHLORIDE 0.9% 1000 ML 1,000 ML ONE (08:49)
[2021-10-22] MEDS ORDERED: LIDOCAINE (2%) 20 MG/1 ML VIAL 20 ML MDV INFILTRATI ONE (09:00)
[2021-10-22] MEDS: MIDAZOLAM 2 MG/2 ML INJ ONE ×2 (09:05→09:35)
[2021-10-22] MEDS: fentaNYL 100 MCG/2 ML INJ ONE ×2 (09:06→09:35)
--- NOTE | 2021-10-22 10:21 | Operative Report ---
Operative Report Operative Report: Date of Procedure: 10/22/2021 Pre-operative Diagnosis: Complications of Dialysis Access Post-operative Diagnosis: Same Procedure(s): 1. Access Left Arm AV Fistula with 7 Martiniquais Sheath Venous 2. Diagnostic Fistulogram and Central Venogram and Arterial Reflux 3. Angioplasty of Left Arm AV Fistula with 8 x 100 [place] Balloon 4. Coil Embolization of AV Fistula Sidebranch with [employer] 6 x 20 cm Interlock Coil 5. Radiologic Supervision with Interpretation 6. Monitored Moderate Sedation (Total Anesthesia Time: 54 Minutes) Surgeon: Denzel Jacob M.D. Repossession Agent: None Anesthesia: Local/Monitored Moderate Sedation Total Anesthesia Time: 54 Minutes EBL: Minimal Counts: Correct Complications: None Condition: Stable Specimen: None Indication: The patient is an 81-year-old male with history of end-stage renal disease who was on hemodialysis through a left brachiocephalic arteriovenous fistula. They are having difficulty accessing his fistula during dialysis so he requires a diagnostic fistulogram with possible intervention. He was given the risk, benefits, and alternative procedures and consented to the procedure. Angiographic Findings: The diagnostic fistulogram revealed 60 to 75% stenosis within the cannulation zone of the fistula. The cephalic arch was patent without evidence of flow- limiting stenosis. The central venous system was patent without evidence of flow-limiting stenosis. There was a large branch near the arterial inflow, with previously placed coils, which continue to divert flow from the cephalic vein and into the basilic vein. The arterial inflow of the fistula was patent with no evidence of flow-limiting stenosis. After intervention the fistula was patent with less than 15% residual stenosis. The sidebranch had significantly sluggish flow and thrombosis appeared eminent. Description of Procedure: The patient was brought to the [facility] and laid in supine position. After timeout was performed his left arm was prepped and draped in normal sterile fashion. Lidocaine was used anesthetize the skin and soft tissue overlying the arterial inflow of the fistula and a 21-gauge micropuncture needle was used to access the fistula towards the venous outflow. A 0.018 micropuncture wire was advanced into the fistula and after removing the needle a 7 Martiniquais sheath was placed by Seldinger technique. A diagnostic fistulogram with central venogram was then performed with the previously described findings. Manual pressure was applied on the venous outflow of the fistula to allow contrast refluxed into the arterial inflow with the previously described findings. I advanced a 0.035 J- wire to the central venous system and performed angioplasty of the areas of stenosis within the fistula using an 8 x 100 [place] Balloon. This resulted in less than 15% residual stenosis. I then used an Omni Flush catheter and a 0.035 floppy Glidewire to cannulate the sidebranch and advanced the catheter and wire into the distal branch. I exchanged the Omni Flush catheter for a 4 Martiniquais vertebral catheter and advanced this into the coils within the branch. I then advanced the renegade microcatheter through the vertebral catheter and into the previously placed coils. I advanced the 6 x 20 cm Interlock Coil to the renegade catheter and into the distal portion of the catheter. I then used a 3 cc syringe to flush saline and deployed the coil within the previously placed coils. I removed the renegade catheter and then used the vertebral catheter to pack the coils tightly into place. The final fistulogram demonstrated sluggish flow within the sidebranch and brisk flow throughout the fistula. At this point the catheter was removed and a 2-0 Ethilon in slipknot fashion was used to close the entry site after removing the sheath. A sterile dressing was then applied to the entry site and the patient was transported to the recovery area in stable condition.
[2021-10-22 13:15] VITALS: BP 146/61
== END 2021-10-22 06:44 | disposition home or self-care (01) ==
LOC: CATHLABREC 06:43
PROVIDERS: ATTEND Surgery Vascular Surgery
DX: T82.898A Other specified complication of vascular prosthetic devices, implants and grafts, initial encounter (principal); I13.2 Hypertensive heart and chronic kidney disease with heart failure and with stage 5 chronic kidney disease, or end stage renal disease; I50.9 Heart failure, unspecified; N18.6 End stage renal disease; E78.5 Hyperlipidemia, unspecified; D64.9 Anemia, unspecified; N40.0 Benign prostatic hyperplasia without lower urinary tract symptoms; Z88.0 Allergy status to penicillin; Z79.82 Long term (current) use of aspirin; Z79.899 Other long term (current) drug therapy; Z85.46 Personal history of malignant neoplasm of prostate; Z98.890 Other specified postprocedural states; Y82.8 Other medical devices associated with adverse incidents; Y92.89 Other specified places as the place of occurrence of the external cause
CPT/HCPCS: 36415; 36901; 36907; 36909; 80048; 85027; 85610; 85730; 99156; 99157; C1725; C1751; C1769; C1887; C1894; J1644; J2250; J3010; J3490; J7030; 36902; J7502; Q9967